=== PATIENT | male | born 1985 | race Two or more races ===

== ENCOUNTER 2021-08-03 15:10 | Inpatient (IN) | payer MEDICAID ==
[~2021-08-03] VITALS: Ht 180.3 cm; Wt 81.6 kg
[2021-08-03] MEDS ORDERED: DIVA-80 PO (18:08)
[2021-08-03] MEDS ORDERED: DOXY-354 PO (18:08)
[2021-08-03] MEDS ORDERED: FOLI0.4T6 PO (18:09)
[2021-08-03] MEDS ORDERED: MELA5TAB40 PO (18:09)
[2021-08-03] MEDS ORDERED: LITH300C3 PO (18:09)
[2021-08-03] MEDS ORDERED: MULT-1203 PO (18:10)
[2021-08-03] MEDS ORDERED: NALT50TA6 PO (18:10)
[2021-08-03] MEDS ORDERED: PANT-31 PO (18:11)
[2021-08-03] MEDS ORDERED: OMEG-135 PO (18:11)
[2021-08-03] MEDS ORDERED: OLAN5TAB94 PO (18:11)
[2021-08-03] MEDS ORDERED: SERT-158 PO (18:11)
[2021-08-03] MEDS ORDERED: THIA100T80 PO (18:12)
[2021-08-03] MEDS ORDERED: ACET-2247 PO (18:12)
[2021-08-03] MEDS ORDERED: BISA-151 PO (18:14)
[2021-08-03] MEDS ORDERED: LOPE2 PO (18:15)
[2021-08-03] MEDS ORDERED: GUAIF10 PO (18:15)
[2021-08-03] MEDS ORDERED: LORA-1001 PO (18:16)
[2021-08-03] MEDS ORDERED: MAAL30 PO (18:18)
[2021-08-03] MEDS ORDERED: MOM30 PO (18:18)
[2021-08-03] MEDS ORDERED: HALOPERIDOL 5 MG TABLET PO PRN (21:30)
[2021-08-03] MEDS ORDERED: LORazepam 2 MG TABLET PO PRN (21:30)
[2021-08-03] MEDS ORDERED: ZOLPIDEM TARTRATE 10 MG TABLET PO PRN (21:30)
[2021-08-03 22:20] VITALS: BP 126/76
[2021-08-03] MEDS ORDERED: INFLUENZA VIRUS VACCINE QVS 2021-22 (6MO+)/PF 60 MCG/0.5 ML SYRINGE IM. ONE (23:15)
[2021-08-04 07:34] LABS: BASOPHILS % (AUTO) 0.5 % (0.0-2.0); EOSINOPHILS % (AUTO) 4.1 % (1.0-6.0); HEMATOCRIT 35.5 % (41-53); HEMOGLOBIN 11.9 g/dL (13.5-17.5); LYMPHOCYTES # (AUTO) 1.6 K/uL (1.0-4.8); LYMPHOCYTES % (AUTO) 15.1 % (22.0-44.0); MEAN CORPUSCULAR HEMOGLOBIN 30.3 pg (26.0-34.0); MEAN CORPUSCULAR HGB CONC 33.4 G/dL (31.0-37.0); MEAN CORPUSCULAR VOLUME 91 fL (80-100); MONOCYTES # (AUTO) 0.9 K/uL (0.1-1.0); MONOCYTES % (AUTO) 8.7 % (2.0-9.0); NEUTROPHILS # (AUTO) 7.4 K/uL (1.8-7.7); NEUTROPHILS % (AUTO) 71.6 % (40.0-70.0); PLATELET COUNT (AUTO) 494 K/uL (150-450); RED BLOOD CELL COUNT(AUTO) 3.91 MIL/uL (4.50-5.90); RED CELL DISTRIBUTION WIDTH 13.9 % (11.5-14.5)
[2021-08-04 07:43] LABS: LITHIUM 0.71 mmol/L (0.60-1.20)
[2021-08-04 07:57] LABS: ALANINE AMINOTRANSFERASE 16 U/L (12-78); ALBUMIN 3.1 g/dL (3.4-5.0); ALKALINE PHOSPHATASE 45 U/L (46-116); ANION GAP 3 mmol/L (8-16); ASPARTATE AMINOTRANSFERASE 10 U/L (15-37); BILIRUBIN,TOTAL 0.4 mg/dL (0.1-1.0); CALCIUM, TOTAL 9.8 mg/dL (8.8-10.5); CARBON DIOXIDE 34 mmol/L (22-29); CHLORIDE 104 mmol/L (98-107); CHOL/HDL RATIO 2.8 (4.2-7.3); CHOLESTEROL 96 mg/dL (131-200); CREATININE 1.27 mg/dL (0.60-1.30); GLOMERULAR FILTR. RATE CALC > 60 mL/min (>60); GLUCOSE,RANDOM 87 mg/dL (70-110); HDL CHOLESTEROL 34 mg/dL (40-60); LDL CHOL (CALC.) 54 mg/dL (0-130); POTASSIUM 3.6 mmol/L (3.5-5.1); SODIUM SERUM 141 mmol/L (136-145); THYROID STIMULATING HORMONE 1.83 uIU/mL (0.36-3.74); TOTAL PROTEIN, SERUM 7.3 g/dL (6.4-8.2); TRIGLYCERIDES 42 mg/dL (15-150); UREA NITROGEN, BLOOD 19 mg/dL (7-18); VALPROIC ACID 50 mcg/mL (50-100)
[2021-08-04 16:51] VITALS: BP 117/76
[2021-08-04] MEDS: LITHIUM CARBONATE 300 MG CAPSULE PO SCH (17:22)
[2021-08-04] MEDS: OLANZapine 5 MG RAPDIS TABLET PO SCH (20:13)
[2021-08-04] MEDS: MELATONIN 5 MG TABLET PO SCH (20:13)
[2021-08-05] MEDS: LITHIUM CARBONATE 300 MG CAPSULE PO SCH ×3 (06:32→16:41)
[2021-08-05] MEDS: NALTREXONE HCL 50 MG TABLET PO SCH (09:17)
[2021-08-05] MEDS: SERTRALINE HCL 50 MG TABLET PO SCH (09:17)
[2021-08-05] MEDS: DIVALPROEX SODIUM 500 MG ER TABLET PO SCH ×3 (09:17→16:41)
[2021-08-05 10:01] VITALS: BP 116/72
[2021-08-05 17:32] VITALS: BP 110/70
[2021-08-05] MEDS: MELATONIN 5 MG TABLET PO SCH (20:18)
[2021-08-05] MEDS: OLANZapine 5 MG RAPDIS TABLET PO SCH (20:18)
[2021-08-06] MEDS: LITHIUM CARBONATE 300 MG CAPSULE PO SCH ×3 (06:46→16:35)
[2021-08-06 08:00] VITALS: BP 114/67
[2021-08-06] MEDS: NALTREXONE HCL 50 MG TABLET PO SCH (08:51)
[2021-08-06] MEDS: DIVALPROEX SODIUM 500 MG ER TABLET PO SCH ×3 (08:51→16:35)
[2021-08-06] MEDS: SERTRALINE HCL 50 MG TABLET PO SCH (08:51)
[2021-08-06 16:33] VITALS: BP 102/69
[2021-08-06] MEDS: OLANZapine 5 MG RAPDIS TABLET PO SCH (20:25)
[2021-08-06] MEDS: MELATONIN 5 MG TABLET PO SCH (20:25)
[2021-08-07] MEDS: LITHIUM CARBONATE 300 MG CAPSULE PO SCH ×3 (06:46→16:19)
[2021-08-07 08:57] VITALS: BP 132/81
[2021-08-07] MEDS: NALTREXONE HCL 50 MG TABLET PO SCH (09:09)
[2021-08-07] MEDS: DIVALPROEX SODIUM 500 MG ER TABLET PO SCH ×3 (09:09→16:19)
[2021-08-07] MEDS: SERTRALINE HCL 50 MG TABLET PO SCH (09:09)
[2021-08-07 16:18] VITALS: BP 118/82
[2021-08-07] MEDS: MELATONIN 5 MG TABLET PO SCH (20:27)
[2021-08-07] MEDS: OLANZapine 5 MG RAPDIS TABLET PO SCH (20:27)
[2021-08-08] MEDS: LITHIUM CARBONATE 300 MG CAPSULE PO SCH ×3 (06:33→16:06)
[2021-08-08] MEDS: NALTREXONE HCL 50 MG TABLET PO SCH (08:53)
[2021-08-08] MEDS: DIVALPROEX SODIUM 500 MG ER TABLET PO SCH ×3 (08:53→16:06)
[2021-08-08] MEDS: MULTIVITAMINS WITH MINERALS, THERAPEUTIC TABLET PO SCH (08:53)
[2021-08-08] MEDS: SERTRALINE HCL 50 MG TABLET PO SCH (08:53)
[2021-08-08 09:49] VITALS: BP 116/69
[2021-08-08 16:00] VITALS: BP 106/75
[2021-08-08] MEDS: MELATONIN 5 MG TABLET PO SCH (20:18)
[2021-08-08] MEDS: OLANZapine 5 MG RAPDIS TABLET PO SCH (20:18)
[2021-08-09] MEDS: LITHIUM CARBONATE 300 MG CAPSULE PO SCH ×3 (06:49→16:28)
[2021-08-09] MEDS: DIVALPROEX SODIUM 500 MG ER TABLET PO SCH ×3 (08:57→16:28)
[2021-08-09] MEDS: SERTRALINE HCL 50 MG TABLET PO SCH (08:58)
[2021-08-09] MEDS: OMEGA-3/DHA/EPA/FISH OIL 1,000 MG CAPSULE PO SCH (08:58)
[2021-08-09] MEDS: NALTREXONE HCL 50 MG TABLET PO SCH (08:58)
[2021-08-09] MEDS: MULTIVITAMINS WITH MINERALS, THERAPEUTIC TABLET PO SCH (08:58)
[2021-08-09 10:02] VITALS: BP 125/69
[2021-08-09 16:24] VITALS: BP 124/82
[2021-08-09] MEDS: MELATONIN 5 MG TABLET PO SCH (20:12)
[2021-08-09] MEDS: OLANZapine 10 MG RAPDIS TABLET PO SCH (20:12)
[2021-08-10] MEDS: LITHIUM CARBONATE 300 MG CAPSULE PO SCH ×3 (06:57→18:42)
[2021-08-10 08:00] VITALS: BP 118/72
[2021-08-10] MEDS: MULTIVITAMINS WITH MINERALS, THERAPEUTIC TABLET PO SCH (08:21)
[2021-08-10] MEDS: OMEGA-3/DHA/EPA/FISH OIL 1,000 MG CAPSULE PO SCH (08:22)
[2021-08-10] MEDS: NALTREXONE HCL 50 MG TABLET PO SCH (08:22)
[2021-08-10] MEDS: DIVALPROEX SODIUM 500 MG ER TABLET PO SCH ×3 (08:22→16:33)
[2021-08-10] MEDS: SERTRALINE HCL 50 MG TABLET PO SCH (08:22)
[2021-08-10 14:48] LABS: COVID AG,FIA SOURCE NASOPHARYNGEAL
[2021-08-10 16:18] VITALS: BP 123/77
[2021-08-10] MEDS: MELATONIN 5 MG TABLET PO SCH (21:05)
[2021-08-10] MEDS: OLANZapine 10 MG RAPDIS TABLET PO SCH (21:06)
[2021-08-11] MEDS: LITHIUM CARBONATE 300 MG CAPSULE PO SCH ×3 (06:34→17:54)
[2021-08-11] MEDS: NALTREXONE HCL 50 MG TABLET PO SCH (08:25)
[2021-08-11] MEDS: SERTRALINE HCL 50 MG TABLET PO SCH (08:25)
[2021-08-11] MEDS: DIVALPROEX SODIUM 500 MG ER TABLET PO SCH ×3 (08:25→16:39)
[2021-08-11] MEDS: MULTIVITAMINS WITH MINERALS, THERAPEUTIC TABLET PO SCH (08:25)
[2021-08-11] MEDS: OMEGA-3/DHA/EPA/FISH OIL 1,000 MG CAPSULE PO SCH (08:25)
[2021-08-11 10:28] VITALS: BP_SYST 113; BP_SYST 126; BP_DIAS 74; BP_DIAS 76
[2021-08-11 16:21] VITALS: BP 124/75
[2021-08-11] MEDS: OLANZapine 10 MG RAPDIS TABLET PO SCH (20:46)
[2021-08-11] MEDS: MELATONIN 5 MG TABLET PO SCH (20:46)
[2021-08-12] MEDS: LITHIUM CARBONATE 300 MG CAPSULE PO SCH ×3 (06:51→16:49)
[2021-08-12] MEDS: NALTREXONE HCL 50 MG TABLET PO SCH (09:05)
[2021-08-12] MEDS: DIVALPROEX SODIUM 500 MG ER TABLET PO SCH ×3 (09:05→16:49)
[2021-08-12] MEDS: MULTIVITAMINS WITH MINERALS, THERAPEUTIC TABLET PO SCH (09:05)
[2021-08-12] MEDS: OMEGA-3/DHA/EPA/FISH OIL 1,000 MG CAPSULE PO SCH (09:05)
[2021-08-12] MEDS: SERTRALINE HCL 50 MG TABLET PO SCH (09:05)
[2021-08-12 16:22] VITALS: BP 12/82
[2021-08-12] MEDS: OLANZapine 10 MG RAPDIS TABLET PO SCH (20:11)
[2021-08-12] MEDS: MELATONIN 5 MG TABLET PO SCH (20:11)
[2021-08-13 08:22] VITALS: BP 114/72
[2021-08-13] MEDS: OMEGA-3/DHA/EPA/FISH OIL 1,000 MG CAPSULE PO SCH (08:56)
[2021-08-13] MEDS: LITHIUM CARBONATE 300 MG CAPSULE PO SCH ×3 (08:56→16:18)
[2021-08-13] MEDS: MULTIVITAMINS WITH MINERALS, THERAPEUTIC TABLET PO SCH (08:56)
[2021-08-13] MEDS: SERTRALINE HCL 50 MG TABLET PO SCH (08:56)
[2021-08-13] MEDS: NALTREXONE HCL 50 MG TABLET PO SCH (08:56)
[2021-08-13] MEDS: DIVALPROEX SODIUM 500 MG ER TABLET PO SCH ×3 (08:56→16:18)
[2021-08-13 16:22] VITALS: BP 120/79
[2021-08-13] MEDS: MELATONIN 5 MG TABLET PO SCH (20:09)
[2021-08-13] MEDS: OLANZapine 10 MG RAPDIS TABLET PO SCH (20:09)
[2021-08-14] MEDS: LITHIUM CARBONATE 300 MG CAPSULE PO SCH ×3 (08:34→16:28)
[2021-08-14] MEDS: DIVALPROEX SODIUM 500 MG ER TABLET PO SCH ×3 (08:34→16:28)
[2021-08-14] MEDS: MULTIVITAMINS WITH MINERALS, THERAPEUTIC TABLET PO SCH (08:34)
[2021-08-14] MEDS: NALTREXONE HCL 50 MG TABLET PO SCH (08:34)
[2021-08-14] MEDS: OMEGA-3/DHA/EPA/FISH OIL 1,000 MG CAPSULE PO SCH (08:34)
[2021-08-14] MEDS: SERTRALINE HCL 50 MG TABLET PO SCH (08:34)
[2021-08-14 09:12] VITALS: BP 117/72
[2021-08-14 16:12] VITALS: BP 110/75
[2021-08-14] MEDS: MELATONIN 5 MG TABLET PO SCH (20:26)
[2021-08-14] MEDS: OLANZapine 10 MG RAPDIS TABLET PO SCH (20:27)
[2021-08-15] MEDS: LITHIUM CARBONATE 300 MG CAPSULE PO SCH ×3 (06:31→16:51)
[2021-08-15] MEDS: NALTREXONE HCL 50 MG TABLET PO SCH (08:31)
[2021-08-15] MEDS: DIVALPROEX SODIUM 500 MG ER TABLET PO SCH ×3 (08:31→16:51)
[2021-08-15] MEDS: SERTRALINE HCL 50 MG TABLET PO SCH (08:31)
[2021-08-15] MEDS: OMEGA-3/DHA/EPA/FISH OIL 1,000 MG CAPSULE PO SCH (08:31)
[2021-08-15] MEDS: MULTIVITAMINS WITH MINERALS, THERAPEUTIC TABLET PO SCH (08:31)
[2021-08-15 08:59] VITALS: BP 110/66
[2021-08-15 16:08] VITALS: BP 114/65
[2021-08-15] MEDS: MELATONIN 5 MG TABLET PO SCH (20:44)
[2021-08-15] MEDS: OLANZapine 10 MG RAPDIS TABLET PO SCH (20:44)
[2021-08-16] MEDS: LITHIUM CARBONATE 300 MG CAPSULE PO SCH ×3 (06:30→16:46)
[2021-08-16] MEDS: OMEGA-3/DHA/EPA/FISH OIL 1,000 MG CAPSULE PO SCH (09:28)
[2021-08-16] MEDS: NALTREXONE HCL 50 MG TABLET PO SCH (09:28)
[2021-08-16] MEDS: DIVALPROEX SODIUM 500 MG ER TABLET PO SCH ×3 (09:28→16:46)
[2021-08-16] MEDS: SERTRALINE HCL 50 MG TABLET PO SCH (09:28)
[2021-08-16] MEDS: MULTIVITAMINS WITH MINERALS, THERAPEUTIC TABLET PO SCH (09:28)
[2021-08-16 09:57] VITALS: BP 148/86
[2021-08-16 16:21] VITALS: BP 125/85
[2021-08-16] MEDS: MELATONIN 5 MG TABLET PO SCH (20:08)
[2021-08-16] MEDS: OLANZapine 10 MG RAPDIS TABLET PO SCH (20:09)
[2021-08-17 05:04] VITALS: BP 105/69
[2021-08-17] MEDS: LITHIUM CARBONATE 300 MG CAPSULE PO SCH ×3 (06:48→16:14)
[2021-08-17 08:10] VITALS: BP 136/79
[2021-08-17] MEDS: MULTIVITAMINS WITH MINERALS, THERAPEUTIC TABLET PO SCH (08:30)
[2021-08-17] MEDS: OMEGA-3/DHA/EPA/FISH OIL 1,000 MG CAPSULE PO SCH (08:30)
[2021-08-17] MEDS: DIVALPROEX SODIUM 500 MG ER TABLET PO SCH ×3 (08:30→16:14)
[2021-08-17] MEDS: SERTRALINE HCL 50 MG TABLET PO SCH (08:30)
[2021-08-17] MEDS: NALTREXONE HCL 50 MG TABLET PO SCH (08:30)
[2021-08-17 16:25] VITALS: BP 107/69
[2021-08-17] MEDS: MELATONIN 5 MG TABLET PO SCH (20:30)
[2021-08-17] MEDS: OLANZapine 10 MG RAPDIS TABLET PO SCH (20:30)
[2021-08-18] MEDS: LITHIUM CARBONATE 300 MG CAPSULE PO SCH ×3 (06:33→16:18)
[2021-08-18 08:00] VITALS: BP 122/69
[2021-08-18] MEDS: MULTIVITAMINS WITH MINERALS, THERAPEUTIC TABLET PO SCH (09:08)
[2021-08-18] MEDS: DIVALPROEX SODIUM 500 MG ER TABLET PO SCH ×3 (09:08→16:18)
[2021-08-18] MEDS: OMEGA-3/DHA/EPA/FISH OIL 1,000 MG CAPSULE PO SCH (09:08)
[2021-08-18] MEDS: SERTRALINE HCL 50 MG TABLET PO SCH (09:08)
[2021-08-18] MEDS: NALTREXONE HCL 50 MG TABLET PO SCH (09:08)
[2021-08-18 16:00] VITALS: BP 136/84
[2021-08-18] MEDS: OLANZapine 10 MG RAPDIS TABLET PO SCH (20:12)
[2021-08-18] MEDS: MELATONIN 5 MG TABLET PO SCH (20:12)
[2021-08-19] MEDS: LITHIUM CARBONATE 300 MG CAPSULE PO SCH ×3 (06:37→16:48)
[2021-08-19 08:52] VITALS: BP 104/64
[2021-08-19] MEDS: DIVALPROEX SODIUM 500 MG ER TABLET PO SCH ×3 (10:36→16:48)
[2021-08-19] MEDS: SERTRALINE HCL 50 MG TABLET PO SCH (10:36)
[2021-08-19] MEDS: MULTIVITAMINS WITH MINERALS, THERAPEUTIC TABLET PO SCH (10:36)
[2021-08-19] MEDS: OMEGA-3/DHA/EPA/FISH OIL 1,000 MG CAPSULE PO SCH (10:36)
[2021-08-19] MEDS: NALTREXONE HCL 50 MG TABLET PO SCH (10:36)
[2021-08-19 16:26] VITALS: BP 116/67
[2021-08-19] MEDS: MELATONIN 5 MG TABLET PO SCH (20:30)
[2021-08-19] MEDS: OLANZapine 10 MG RAPDIS TABLET PO SCH (20:31)
[2021-08-20] MEDS: LITHIUM CARBONATE 300 MG CAPSULE PO SCH ×3 (06:59→16:29)
[2021-08-20] MEDS: OMEGA-3/DHA/EPA/FISH OIL 1,000 MG CAPSULE PO SCH (08:26)
[2021-08-20] MEDS: SERTRALINE HCL 50 MG TABLET PO SCH (08:26)
[2021-08-20] MEDS: NALTREXONE HCL 50 MG TABLET PO SCH (08:26)
[2021-08-20] MEDS: MULTIVITAMINS WITH MINERALS, THERAPEUTIC TABLET PO SCH (08:26)
[2021-08-20] MEDS: DIVALPROEX SODIUM 500 MG ER TABLET PO SCH ×3 (08:26→16:29)
[2021-08-20 09:00] VITALS: BP 155/77
[2021-08-20 10:19] LABS: COVID AG,FIA SOURCE NASAL SWAB
[2021-08-20 16:20] VITALS: BP 144/81
[2021-08-20] MEDS: CLOBETASOL 0.05% 15 GM CREAM TP SCH (16:29)
[2021-08-20] MEDS: MELATONIN 5 MG TABLET PO SCH (20:27)
[2021-08-20] MEDS: OLANZapine 10 MG RAPDIS TABLET PO SCH (20:27)
[2021-08-21] MEDS: LITHIUM CARBONATE 300 MG CAPSULE PO SCH ×3 (06:49→16:06)
[2021-08-21] MEDS: OMEGA-3/DHA/EPA/FISH OIL 1,000 MG CAPSULE PO SCH (08:27)
[2021-08-21] MEDS: DIVALPROEX SODIUM 500 MG ER TABLET PO SCH ×3 (08:27→16:06)
[2021-08-21] MEDS: MULTIVITAMINS WITH MINERALS, THERAPEUTIC TABLET PO SCH (08:27)
[2021-08-21] MEDS: SERTRALINE HCL 50 MG TABLET PO SCH (08:27)
[2021-08-21] MEDS: NALTREXONE HCL 50 MG TABLET PO SCH (08:27)
[2021-08-21] MEDS: CLOBETASOL 0.05% 15 GM CREAM TP SCH ×2 (08:27→16:06)
[2021-08-21 09:27] VITALS: BP 100/54
[2021-08-21 16:28] VITALS: BP 118/77
[2021-08-21] MEDS: OLANZapine 10 MG RAPDIS TABLET PO SCH (20:09)
[2021-08-21] MEDS: MELATONIN 5 MG TABLET PO SCH (20:09)
[2021-08-22] MEDS: LITHIUM CARBONATE 300 MG CAPSULE PO SCH ×3 (06:38→16:58)
[2021-08-22 08:06] VITALS: BP 114/70
[2021-08-22] MEDS: OMEGA-3/DHA/EPA/FISH OIL 1,000 MG CAPSULE PO SCH (08:38)
[2021-08-22] MEDS: DIVALPROEX SODIUM 500 MG ER TABLET PO SCH ×3 (08:38→16:58)
[2021-08-22] MEDS: MULTIVITAMINS WITH MINERALS, THERAPEUTIC TABLET PO SCH (08:39)
[2021-08-22] MEDS: CLOBETASOL 0.05% 15 GM CREAM TP SCH ×2 (08:39→17:00)
[2021-08-22] MEDS: NALTREXONE HCL 50 MG TABLET PO SCH (08:39)
[2021-08-22] MEDS: SERTRALINE HCL 50 MG TABLET PO SCH (08:39)
[2021-08-22 16:24] VITALS: BP 147/87
[2021-08-22] MEDS: MELATONIN 5 MG TABLET PO SCH (20:16)
[2021-08-22] MEDS: OLANZapine 10 MG RAPDIS TABLET PO SCH (20:17)
[2021-08-23 03:21] VITALS: BP 122/76
[2021-08-23] MEDS: LITHIUM CARBONATE 300 MG CAPSULE PO SCH ×3 (06:30→16:05)
[2021-08-23] MEDS: NALTREXONE HCL 50 MG TABLET PO SCH (08:34)
[2021-08-23] MEDS: OMEGA-3/DHA/EPA/FISH OIL 1,000 MG CAPSULE PO SCH (08:34)
[2021-08-23] MEDS: DIVALPROEX SODIUM 500 MG ER TABLET PO SCH ×3 (08:34→16:05)
[2021-08-23] MEDS: CLOBETASOL 0.05% 15 GM CREAM TP SCH ×2 (08:35→16:05)
[2021-08-23] MEDS: MULTIVITAMINS WITH MINERALS, THERAPEUTIC TABLET PO SCH (08:35)
[2021-08-23] MEDS: SERTRALINE HCL 50 MG TABLET PO SCH (08:35)
[2021-08-23 09:12] VITALS: BP 146/87
[2021-08-23 16:00] VITALS: BP 122/83
[2021-08-23] MEDS: MELATONIN 5 MG TABLET PO SCH (20:02)
[2021-08-23] MEDS: OLANZapine 10 MG RAPDIS TABLET PO SCH (20:02)
[2021-08-24] MEDS: LITHIUM CARBONATE 300 MG CAPSULE PO SCH ×3 (06:40→16:07)
[2021-08-24] MEDS: CLOBETASOL 0.05% 15 GM CREAM TP SCH ×2 (09:00→16:08)
[2021-08-24] MEDS: MULTIVITAMINS WITH MINERALS, THERAPEUTIC TABLET PO SCH (09:31)
[2021-08-24] MEDS: DIVALPROEX SODIUM 500 MG ER TABLET PO SCH ×3 (09:31→16:07)
[2021-08-24] MEDS: NALTREXONE HCL 50 MG TABLET PO SCH (09:31)
[2021-08-24] MEDS: SERTRALINE HCL 50 MG TABLET PO SCH (09:31)
[2021-08-24] MEDS: OMEGA-3/DHA/EPA/FISH OIL 1,000 MG CAPSULE PO SCH (09:31)
[2021-08-24 16:00] VITALS: BP 135/78
[2021-08-24] MEDS: OLANZapine 10 MG RAPDIS TABLET PO SCH (20:03)
[2021-08-24] MEDS: MELATONIN 5 MG TABLET PO SCH (20:03)
[2021-08-25] MEDS: LITHIUM CARBONATE 300 MG CAPSULE PO SCH ×3 (06:34→16:46)
[2021-08-25 08:27] VITALS: BP 113/62
[2021-08-25] MEDS: NALTREXONE HCL 50 MG TABLET PO SCH (08:42)
[2021-08-25] MEDS: DIVALPROEX SODIUM 500 MG ER TABLET PO SCH ×3 (08:42→16:46)
[2021-08-25] MEDS: MULTIVITAMINS WITH MINERALS, THERAPEUTIC TABLET PO SCH (08:42)
[2021-08-25] MEDS: OMEGA-3/DHA/EPA/FISH OIL 1,000 MG CAPSULE PO SCH (08:42)
[2021-08-25] MEDS: ESCITALOPRAM OXALATE 10 MG TABLET PO SCH ×2 (08:44→16:46)
[2021-08-25] MEDS: CLOBETASOL 0.05% 15 GM CREAM TP SCH ×2 (08:44→16:47)
[2021-08-25] MEDS ORDERED: ESCITALOPRAM OXALATE 10 MG TABLET PO SCH (09:00)
[2021-08-25 16:14] VITALS: BP 127/83
[2021-08-25] MEDS: MELATONIN 5 MG TABLET PO SCH (20:28)
[2021-08-25] MEDS: OLANZapine 10 MG RAPDIS TABLET PO SCH (20:29)
[2021-08-26] MEDS: LITHIUM CARBONATE 300 MG CAPSULE PO SCH ×3 (06:57→16:53)
[2021-08-26] MEDS: MULTIVITAMINS WITH MINERALS, THERAPEUTIC TABLET PO SCH (08:21)
[2021-08-26] MEDS: DIVALPROEX SODIUM 500 MG ER TABLET PO SCH ×3 (08:21→16:53)
[2021-08-26] MEDS: OMEGA-3/DHA/EPA/FISH OIL 1,000 MG CAPSULE PO SCH (08:22)
[2021-08-26] MEDS: NALTREXONE HCL 50 MG TABLET PO SCH (08:22)
[2021-08-26] MEDS: ESCITALOPRAM OXALATE 10 MG TABLET PO SCH ×2 (08:22→16:53)
[2021-08-26] MEDS: CLOBETASOL 0.05% 15 GM CREAM TP SCH ×2 (08:22→16:53)
[2021-08-26 08:51] VITALS: BP 113/69
[2021-08-26 16:00] VITALS: BP 112/71
[2021-08-26] MEDS: OLANZapine 10 MG RAPDIS TABLET PO SCH (20:57)
[2021-08-26] MEDS: MELATONIN 5 MG TABLET PO SCH (20:57)
[2021-08-27] MEDS: LITHIUM CARBONATE 300 MG CAPSULE PO SCH ×3 (06:59→16:31)
[2021-08-27] MEDS: NALTREXONE HCL 50 MG TABLET PO SCH (08:57)
[2021-08-27] MEDS: OMEGA-3/DHA/EPA/FISH OIL 1,000 MG CAPSULE PO SCH (08:57)
[2021-08-27] MEDS: MULTIVITAMINS WITH MINERALS, THERAPEUTIC TABLET PO SCH (08:57)
[2021-08-27] MEDS: DIVALPROEX SODIUM 500 MG ER TABLET PO SCH ×3 (08:57→16:31)
[2021-08-27] MEDS: ESCITALOPRAM OXALATE 10 MG TABLET PO SCH ×2 (08:58→16:32)
[2021-08-27] MEDS: CLOBETASOL 0.05% 15 GM CREAM TP SCH ×2 (12:44→16:32)
[2021-08-27 14:01] LABS: COVID AG,FIA SOURCE NASAL SWAB
[2021-08-27 16:29] VITALS: BP 104/72
[2021-08-27] MEDS: OLANZapine 10 MG RAPDIS TABLET PO SCH (20:05)
[2021-08-27] MEDS: MELATONIN 5 MG TABLET PO SCH (20:05)
[2021-08-28] MEDS: LITHIUM CARBONATE 300 MG CAPSULE PO SCH ×3 (06:39→16:25)
[2021-08-28 08:45] VITALS: BP 97/66
[2021-08-28] MEDS: DIVALPROEX SODIUM 500 MG ER TABLET PO SCH ×3 (09:32→16:24)
[2021-08-28] MEDS: NALTREXONE HCL 50 MG TABLET PO SCH (09:32)
[2021-08-28] MEDS: MULTIVITAMINS WITH MINERALS, THERAPEUTIC TABLET PO SCH (09:32)
[2021-08-28] MEDS: OMEGA-3/DHA/EPA/FISH OIL 1,000 MG CAPSULE PO SCH (09:32)
[2021-08-28] MEDS: CLOBETASOL 0.05% 15 GM CREAM TP SCH ×2 (09:33→16:25)
[2021-08-28] MEDS: ESCITALOPRAM OXALATE 10 MG TABLET PO SCH ×2 (09:33→16:24)
[2021-08-28 16:00] VITALS: BP 105/67
[2021-08-28 16:41] VITALS: BP 105/67
[2021-08-28] MEDS: MELATONIN 5 MG TABLET PO SCH (20:29)
[2021-08-28] MEDS: OLANZapine 10 MG RAPDIS TABLET PO SCH (20:29)
[2021-08-29] MEDS: LITHIUM CARBONATE 300 MG CAPSULE PO SCH ×3 (06:52→16:04)
[2021-08-29 08:00] VITALS: BP 102/64
[2021-08-29] MEDS: DIVALPROEX SODIUM 500 MG ER TABLET PO SCH ×3 (08:32→16:04)
[2021-08-29] MEDS: NALTREXONE HCL 50 MG TABLET PO SCH (08:32)
[2021-08-29] MEDS: MULTIVITAMINS WITH MINERALS, THERAPEUTIC TABLET PO SCH (08:32)
[2021-08-29] MEDS: OMEGA-3/DHA/EPA/FISH OIL 1,000 MG CAPSULE PO SCH (08:32)
[2021-08-29] MEDS: ESCITALOPRAM OXALATE 10 MG TABLET PO SCH ×2 (08:33→16:04)
[2021-08-29] MEDS: CLOBETASOL 0.05% 15 GM CREAM TP SCH ×2 (08:34→16:05)
[2021-08-29 16:00] VITALS: BP 109/69
[2021-08-29] MEDS: OLANZapine 10 MG RAPDIS TABLET PO SCH (20:13)
[2021-08-29] MEDS: MELATONIN 5 MG TABLET PO SCH (20:14)
[2021-08-30] MEDS: LITHIUM CARBONATE 300 MG CAPSULE PO SCH ×3 (07:03→16:17)
[2021-08-30 07:35] VITALS: BP 117/78
[2021-08-30 08:26] VITALS: BP 117/78
[2021-08-30] MEDS: OMEGA-3/DHA/EPA/FISH OIL 1,000 MG CAPSULE PO SCH (09:03)
[2021-08-30] MEDS: MULTIVITAMINS WITH MINERALS, THERAPEUTIC TABLET PO SCH (09:03)
[2021-08-30] MEDS: DIVALPROEX SODIUM 500 MG ER TABLET PO SCH ×3 (09:03→16:17)
[2021-08-30] MEDS: ESCITALOPRAM OXALATE 10 MG TABLET PO SCH ×2 (09:03→16:17)
[2021-08-30] MEDS: NALTREXONE HCL 50 MG TABLET PO SCH (09:03)
[2021-08-30] MEDS: CLOBETASOL 0.05% 15 GM CREAM TP SCH ×2 (13:52→16:17)
[2021-08-30 16:31] VITALS: BP 101/69
[2021-08-30] MEDS: MELATONIN 5 MG TABLET PO SCH (20:13)
[2021-08-30] MEDS: OLANZapine 10 MG RAPDIS TABLET PO SCH (20:13)
[2021-08-31] MEDS: LITHIUM CARBONATE 300 MG CAPSULE PO SCH ×3 (06:40→17:55)
[2021-08-31] MEDS: DIVALPROEX SODIUM 500 MG ER TABLET PO SCH ×3 (08:24→16:42)
[2021-08-31] MEDS: CLOBETASOL 0.05% 15 GM CREAM TP SCH ×2 (08:24→16:43)
[2021-08-31] MEDS: OMEGA-3/DHA/EPA/FISH OIL 1,000 MG CAPSULE PO SCH (08:24)
[2021-08-31] MEDS: NALTREXONE HCL 50 MG TABLET PO SCH (08:24)
[2021-08-31] MEDS: MULTIVITAMINS WITH MINERALS, THERAPEUTIC TABLET PO SCH (08:25)
[2021-08-31] MEDS: ESCITALOPRAM OXALATE 10 MG TABLET PO SCH ×2 (08:26→16:42)
[2021-08-31 08:57] VITALS: BP 104/69
[2021-08-31 16:11] VITALS: BP 117/67
[2021-08-31 20:03] VITALS: BP 117/67
[2021-08-31] MEDS: MELATONIN 5 MG TABLET PO SCH (20:33)
[2021-08-31] MEDS: OLANZapine 10 MG RAPDIS TABLET PO SCH (20:33)
[2021-09-01 05:59] VITALS: BP 116/65
[2021-09-01] MEDS: LITHIUM CARBONATE 300 MG CAPSULE PO SCH ×3 (06:47→18:31)
[2021-09-01] MEDS: NALTREXONE HCL 50 MG TABLET PO SCH (09:04)
[2021-09-01] MEDS: DIVALPROEX SODIUM 500 MG ER TABLET PO SCH ×3 (09:04→16:17)
[2021-09-01] MEDS: OMEGA-3/DHA/EPA/FISH OIL 1,000 MG CAPSULE PO SCH (09:04)
[2021-09-01] MEDS: ESCITALOPRAM OXALATE 10 MG TABLET PO SCH ×2 (09:04→16:17)
[2021-09-01] MEDS: MULTIVITAMINS WITH MINERALS, THERAPEUTIC TABLET PO SCH (09:05)
[2021-09-01 09:48] VITALS: BP 114/67
[2021-09-01] MEDS: CLOBETASOL 0.05% 15 GM CREAM TP SCH ×2 (13:24→16:18)
[2021-09-01 17:00] VITALS: BP 106/67
[2021-09-01] MEDS: MELATONIN 5 MG TABLET PO SCH (20:25)
[2021-09-01] MEDS: OLANZapine 10 MG RAPDIS TABLET PO SCH (20:26)
[2021-09-02] MEDS: LITHIUM CARBONATE 300 MG CAPSULE PO SCH ×3 (06:37→17:30)
[2021-09-02] MEDS: CLOBETASOL 0.05% 15 GM CREAM TP SCH ×2 (08:35→16:17)
[2021-09-02] MEDS: OMEGA-3/DHA/EPA/FISH OIL 1,000 MG CAPSULE PO SCH (08:35)
[2021-09-02] MEDS: DIVALPROEX SODIUM 500 MG ER TABLET PO SCH ×3 (08:35→16:16)
[2021-09-02] MEDS: ESCITALOPRAM OXALATE 10 MG TABLET PO SCH ×2 (08:36→16:16)
[2021-09-02] MEDS: MULTIVITAMINS WITH MINERALS, THERAPEUTIC TABLET PO SCH (08:36)
[2021-09-02] MEDS: NALTREXONE HCL 50 MG TABLET PO SCH (08:36)
[2021-09-02 09:25] VITALS: BP 115/60
[2021-09-02 16:36] VITALS: BP 114/72
[2021-09-02] MEDS: OLANZapine 10 MG RAPDIS TABLET PO SCH (20:15)
[2021-09-02] MEDS: MELATONIN 5 MG TABLET PO SCH (20:15)
[2021-09-03] MEDS: LITHIUM CARBONATE 300 MG CAPSULE PO SCH ×3 (06:57→16:29)
[2021-09-03] MEDS: ESCITALOPRAM OXALATE 10 MG TABLET PO SCH ×2 (08:59→16:29)
[2021-09-03] MEDS: CLOBETASOL 0.05% 15 GM CREAM TP SCH (08:59)
[2021-09-03] MEDS: MULTIVITAMINS WITH MINERALS, THERAPEUTIC TABLET PO SCH (08:59)
[2021-09-03] MEDS: DIVALPROEX SODIUM 500 MG ER TABLET PO SCH ×3 (09:00→16:29)
[2021-09-03] MEDS: NALTREXONE HCL 50 MG TABLET PO SCH (09:00)
[2021-09-03] MEDS: OMEGA-3/DHA/EPA/FISH OIL 1,000 MG CAPSULE PO SCH (09:00)
[2021-09-03 10:45] VITALS: BP 136/84
[2021-09-03 11:46] LABS: COVID AG,FIA SOURCE NASOPHARYNGEAL
[2021-09-03 16:25] VITALS: BP 122/75
[2021-09-03] MEDS: MELATONIN 5 MG TABLET PO SCH (20:33)
[2021-09-03] MEDS: OLANZapine 10 MG RAPDIS TABLET PO SCH (20:33)
[2021-09-04] MEDS: LITHIUM CARBONATE 300 MG CAPSULE PO SCH ×3 (06:34→16:10)
[2021-09-04] MEDS: MULTIVITAMINS WITH MINERALS, THERAPEUTIC TABLET PO SCH (08:38)
[2021-09-04] MEDS: DIVALPROEX SODIUM 500 MG ER TABLET PO SCH ×3 (08:38→16:10)
[2021-09-04] MEDS: ESCITALOPRAM OXALATE 10 MG TABLET PO SCH ×2 (08:38→16:10)
[2021-09-04] MEDS: NALTREXONE HCL 50 MG TABLET PO SCH (08:38)
[2021-09-04] MEDS: OMEGA-3/DHA/EPA/FISH OIL 1,000 MG CAPSULE PO SCH (08:38)
[2021-09-04 09:00] VITALS: BP 152/83
[2021-09-04 16:26] VITALS: BP 105/57
[2021-09-04] MEDS: MELATONIN 5 MG TABLET PO SCH (20:02)
[2021-09-04] MEDS: OLANZapine 10 MG RAPDIS TABLET PO SCH (20:03)
[2021-09-05] MEDS: LITHIUM CARBONATE 300 MG CAPSULE PO SCH ×3 (06:36→18:46)
[2021-09-05 08:29] VITALS: BP 111/67
[2021-09-05] MEDS: OMEGA-3/DHA/EPA/FISH OIL 1,000 MG CAPSULE PO SCH (08:43)
[2021-09-05] MEDS: MULTIVITAMINS WITH MINERALS, THERAPEUTIC TABLET PO SCH (08:43)
[2021-09-05] MEDS: ESCITALOPRAM OXALATE 10 MG TABLET PO SCH ×2 (08:43→16:05)
[2021-09-05] MEDS: DIVALPROEX SODIUM 500 MG ER TABLET PO SCH ×3 (08:44→16:05)
[2021-09-05] MEDS: NALTREXONE HCL 50 MG TABLET PO SCH (08:44)
[2021-09-05 16:13] VITALS: BP 121/68
[2021-09-05] MEDS: MELATONIN 5 MG TABLET PO SCH (20:31)
[2021-09-05] MEDS: OLANZapine 10 MG RAPDIS TABLET PO SCH (20:31)
[2021-09-06] MEDS: LITHIUM CARBONATE 300 MG CAPSULE PO SCH ×3 (06:45→16:23)
[2021-09-06] MEDS: ESCITALOPRAM OXALATE 10 MG TABLET PO SCH ×2 (08:40→16:23)
[2021-09-06] MEDS: NALTREXONE HCL 50 MG TABLET PO SCH (08:40)
[2021-09-06] MEDS: OMEGA-3/DHA/EPA/FISH OIL 1,000 MG CAPSULE PO SCH (08:40)
[2021-09-06] MEDS: DIVALPROEX SODIUM 500 MG ER TABLET PO SCH ×3 (08:40→16:23)
[2021-09-06] MEDS: MULTIVITAMINS WITH MINERALS, THERAPEUTIC TABLET PO SCH (08:41)
[2021-09-06 09:06] VITALS: BP 143/88
[2021-09-06 16:20] VITALS: BP 118/69
[2021-09-06] MEDS: MELATONIN 5 MG TABLET PO SCH (20:20)
[2021-09-06] MEDS: OLANZapine 10 MG RAPDIS TABLET PO SCH (20:20)
[2021-09-07] MEDS: LITHIUM CARBONATE 300 MG CAPSULE PO SCH ×3 (06:49→16:05)
[2021-09-07] MEDS: MULTIVITAMINS WITH MINERALS, THERAPEUTIC TABLET PO SCH (08:07)
[2021-09-07] MEDS: DIVALPROEX SODIUM 500 MG ER TABLET PO SCH ×3 (08:07→16:05)
[2021-09-07] MEDS: NALTREXONE HCL 50 MG TABLET PO SCH (08:07)
[2021-09-07] MEDS: OMEGA-3/DHA/EPA/FISH OIL 1,000 MG CAPSULE PO SCH (08:07)
[2021-09-07] MEDS: ESCITALOPRAM OXALATE 10 MG TABLET PO SCH ×2 (08:08→16:06)
[2021-09-07 10:05] VITALS: BP 127/82
[2021-09-07 16:46] VITALS: BP 119/78
[2021-09-07] MEDS: MELATONIN 5 MG TABLET PO SCH (20:02)
[2021-09-07] MEDS: OLANZapine 10 MG RAPDIS TABLET PO SCH (20:03)
[2021-09-08] MEDS: LITHIUM CARBONATE 300 MG CAPSULE PO SCH ×3 (06:49→17:49)
[2021-09-08 08:18] VITALS: BP 137/70
[2021-09-08] MEDS: MULTIVITAMINS WITH MINERALS, THERAPEUTIC TABLET PO SCH (08:26)
[2021-09-08] MEDS: NALTREXONE HCL 50 MG TABLET PO SCH (08:27)
[2021-09-08] MEDS: DIVALPROEX SODIUM 500 MG ER TABLET PO SCH ×3 (08:27→17:49)
[2021-09-08] MEDS: ESCITALOPRAM OXALATE 10 MG TABLET PO SCH ×2 (08:27→17:49)
[2021-09-08] MEDS: OMEGA-3/DHA/EPA/FISH OIL 1,000 MG CAPSULE PO SCH (08:27)
[2021-09-08 17:02] VITALS: BP 120/83
[2021-09-08] MEDS: OLANZapine 10 MG RAPDIS TABLET PO SCH (20:46)
[2021-09-08] MEDS: MELATONIN 5 MG TABLET PO SCH (20:46)
[2021-09-09] MEDS: LITHIUM CARBONATE 300 MG CAPSULE PO SCH ×3 (06:47→16:43)
[2021-09-09 08:00] VITALS: BP 109/66
[2021-09-09] MEDS: MULTIVITAMINS WITH MINERALS, THERAPEUTIC TABLET PO SCH (08:40)
[2021-09-09] MEDS: NALTREXONE HCL 50 MG TABLET PO SCH (08:40)
[2021-09-09] MEDS: ESCITALOPRAM OXALATE 10 MG TABLET PO SCH ×2 (08:41→16:43)
[2021-09-09] MEDS: OMEGA-3/DHA/EPA/FISH OIL 1,000 MG CAPSULE PO SCH (08:41)
[2021-09-09] MEDS: DIVALPROEX SODIUM 500 MG ER TABLET PO SCH ×3 (08:41→16:42)
[2021-09-09 18:25] VITALS: BP 101/61
[2021-09-09] MEDS: MELATONIN 5 MG TABLET PO SCH (20:09)
[2021-09-09] MEDS: OLANZapine 10 MG RAPDIS TABLET PO SCH (20:09)
[2021-09-10] MEDS: LITHIUM CARBONATE 300 MG CAPSULE PO SCH ×3 (07:05→16:30)
[2021-09-10 08:00] VITALS: BP 108/64
[2021-09-10] MEDS: OMEGA-3/DHA/EPA/FISH OIL 1,000 MG CAPSULE PO SCH (08:52)
[2021-09-10] MEDS: ESCITALOPRAM OXALATE 10 MG TABLET PO SCH ×2 (08:52→16:30)
[2021-09-10] MEDS: MULTIVITAMINS WITH MINERALS, THERAPEUTIC TABLET PO SCH (08:52)
[2021-09-10] MEDS: NALTREXONE HCL 50 MG TABLET PO SCH (08:52)
[2021-09-10] MEDS: DIVALPROEX SODIUM 500 MG ER TABLET PO SCH ×3 (08:55→16:30)
[2021-09-10 09:59] LABS: COVID AG,FIA SOURCE NASOPHARYNGEAL
[2021-09-10 16:27] VITALS: BP 120/74
[2021-09-10] MEDS: OLANZapine 10 MG RAPDIS TABLET PO SCH (20:54)
[2021-09-10] MEDS: MELATONIN 5 MG TABLET PO SCH (20:54)
[2021-09-11] MEDS: LITHIUM CARBONATE 300 MG CAPSULE PO SCH ×3 (06:49→16:10)
[2021-09-11] MEDS: NALTREXONE HCL 50 MG TABLET PO SCH (07:58)
[2021-09-11] MEDS: MULTIVITAMINS WITH MINERALS, THERAPEUTIC TABLET PO SCH (07:58)
[2021-09-11] MEDS: ESCITALOPRAM OXALATE 10 MG TABLET PO SCH ×2 (07:58→16:10)
[2021-09-11] MEDS: DIVALPROEX SODIUM 500 MG ER TABLET PO SCH ×3 (07:58→16:10)
[2021-09-11] MEDS: OMEGA-3/DHA/EPA/FISH OIL 1,000 MG CAPSULE PO SCH (07:58)
[2021-09-11 08:51] VITALS: BP 111/66
[2021-09-11 16:36] VITALS: BP 118/66
[2021-09-11] MEDS: MELATONIN 5 MG TABLET PO SCH (20:06)
[2021-09-11] MEDS: OLANZapine 10 MG RAPDIS TABLET PO SCH (20:07)
[2021-09-12] MEDS: LITHIUM CARBONATE 300 MG CAPSULE PO SCH ×3 (06:55→16:33)
[2021-09-12] MEDS: DIVALPROEX SODIUM 500 MG ER TABLET PO SCH ×3 (08:19→16:33)
[2021-09-12] MEDS: MULTIVITAMINS WITH MINERALS, THERAPEUTIC TABLET PO SCH (08:19)
[2021-09-12] MEDS: OMEGA-3/DHA/EPA/FISH OIL 1,000 MG CAPSULE PO SCH (08:20)
[2021-09-12] MEDS: NALTREXONE HCL 50 MG TABLET PO SCH (08:20)
[2021-09-12] MEDS: ESCITALOPRAM OXALATE 10 MG TABLET PO SCH ×2 (08:20→16:33)
[2021-09-12 10:04] VITALS: BP 143/89
[2021-09-12 17:14] VITALS: BP 119/70
[2021-09-12] MEDS: OLANZapine 10 MG RAPDIS TABLET PO SCH (21:02)
[2021-09-12] MEDS: MELATONIN 5 MG TABLET PO SCH (21:02)
[2021-09-13] MEDS: LITHIUM CARBONATE 300 MG CAPSULE PO SCH ×3 (06:51→17:31)
[2021-09-13 08:00] VITALS: BP 118/70
[2021-09-13] MEDS: OMEGA-3/DHA/EPA/FISH OIL 1,000 MG CAPSULE PO SCH (08:55)
[2021-09-13] MEDS: MULTIVITAMINS WITH MINERALS, THERAPEUTIC TABLET PO SCH (08:56)
[2021-09-13] MEDS: NALTREXONE HCL 50 MG TABLET PO SCH (08:56)
[2021-09-13] MEDS: DIVALPROEX SODIUM 500 MG ER TABLET PO SCH ×3 (08:56→17:31)
[2021-09-13] MEDS: ESCITALOPRAM OXALATE 10 MG TABLET PO SCH ×2 (08:56→17:31)
[2021-09-13 16:00] VITALS: BP 120/74
[2021-09-13] MEDS: OLANZapine 10 MG RAPDIS TABLET PO SCH (21:23)
[2021-09-13] MEDS: MELATONIN 5 MG TABLET PO SCH (21:23)
[2021-09-14] MEDS: LITHIUM CARBONATE 300 MG CAPSULE PO SCH ×3 (07:00→17:21)
[2021-09-14] MEDS: MULTIVITAMINS WITH MINERALS, THERAPEUTIC TABLET PO SCH (08:30)
[2021-09-14] MEDS: NALTREXONE HCL 50 MG TABLET PO SCH (08:30)
[2021-09-14] MEDS: OMEGA-3/DHA/EPA/FISH OIL 1,000 MG CAPSULE PO SCH (08:30)
[2021-09-14] MEDS: DIVALPROEX SODIUM 500 MG ER TABLET PO SCH ×3 (08:30→16:30)
[2021-09-14] MEDS: ESCITALOPRAM OXALATE 10 MG TABLET PO SCH ×2 (08:31→16:30)
[2021-09-14 09:14] VITALS: BP 117/68
[2021-09-14 16:09] VITALS: BP 132/76
[2021-09-14] MEDS: MELATONIN 5 MG TABLET PO SCH (20:58)
[2021-09-14] MEDS: OLANZapine 10 MG RAPDIS TABLET PO SCH (20:58)
[2021-09-15] MEDS: LITHIUM CARBONATE 300 MG CAPSULE PO SCH ×3 (06:31→16:08)
[2021-09-15 08:12] VITALS: BP 115/72
[2021-09-15] MEDS: NALTREXONE HCL 50 MG TABLET PO SCH (09:30)
[2021-09-15] MEDS: OMEGA-3/DHA/EPA/FISH OIL 1,000 MG CAPSULE PO SCH (09:30)
[2021-09-15] MEDS: DIVALPROEX SODIUM 500 MG ER TABLET PO SCH ×3 (09:30→16:08)
[2021-09-15] MEDS: MULTIVITAMINS WITH MINERALS, THERAPEUTIC TABLET PO SCH (09:30)
[2021-09-15] MEDS: ESCITALOPRAM OXALATE 10 MG TABLET PO SCH ×2 (09:30→16:08)
[2021-09-15 16:20] VITALS: BP 139/76
[2021-09-15] MEDS: MELATONIN 5 MG TABLET PO SCH (20:26)
[2021-09-15] MEDS: OLANZapine 10 MG RAPDIS TABLET PO SCH (20:26)
[2021-09-16] MEDS: LITHIUM CARBONATE 300 MG CAPSULE PO SCH ×3 (06:34→16:58)
[2021-09-16 08:13] VITALS: BP 112/72
[2021-09-16 08:51] VITALS: BP 112/72
[2021-09-16] MEDS: OMEGA-3/DHA/EPA/FISH OIL 1,000 MG CAPSULE PO SCH (09:12)
[2021-09-16] MEDS: ESCITALOPRAM OXALATE 10 MG TABLET PO SCH ×2 (09:13→16:21)
[2021-09-16] MEDS: NALTREXONE HCL 50 MG TABLET PO SCH (09:13)
[2021-09-16] MEDS: DIVALPROEX SODIUM 500 MG ER TABLET PO SCH ×3 (09:13→16:20)
[2021-09-16] MEDS: MULTIVITAMINS WITH MINERALS, THERAPEUTIC TABLET PO SCH (09:14)
[2021-09-16 16:21] VITALS: BP 116/74
[2021-09-16] MEDS: OLANZapine 10 MG RAPDIS TABLET PO SCH (20:17)
[2021-09-16] MEDS: MELATONIN 5 MG TABLET PO SCH (20:18)
[2021-09-17 05:15] VITALS: BP 114/63
[2021-09-17] MEDS: LITHIUM CARBONATE 300 MG CAPSULE PO SCH ×3 (06:46→16:20)
[2021-09-17 08:00] VITALS: BP 120/66
[2021-09-17] MEDS: MULTIVITAMINS WITH MINERALS, THERAPEUTIC TABLET PO SCH (08:21)
[2021-09-17] MEDS: OMEGA-3/DHA/EPA/FISH OIL 1,000 MG CAPSULE PO SCH (08:21)
[2021-09-17] MEDS: ESCITALOPRAM OXALATE 10 MG TABLET PO SCH ×2 (08:21→16:20)
[2021-09-17] MEDS: DIVALPROEX SODIUM 500 MG ER TABLET PO SCH ×3 (08:21→16:20)
[2021-09-17] MEDS: NALTREXONE HCL 50 MG TABLET PO SCH (08:21)
[2021-09-17 09:16] LABS: COVID AG,FIA SOURCE NASOPHARYNGEAL
[2021-09-17 16:45] VITALS: BP 115/74
[2021-09-17] MEDS: OLANZapine 10 MG RAPDIS TABLET PO SCH (20:08)
[2021-09-17] MEDS: MELATONIN 5 MG TABLET PO SCH (20:08)
[2021-09-18] MEDS: LITHIUM CARBONATE 300 MG CAPSULE PO SCH ×3 (06:31→17:34)
[2021-09-18] MEDS: MULTIVITAMINS WITH MINERALS, THERAPEUTIC TABLET PO SCH (08:41)
[2021-09-18] MEDS: OMEGA-3/DHA/EPA/FISH OIL 1,000 MG CAPSULE PO SCH (08:41)
[2021-09-18] MEDS: ESCITALOPRAM OXALATE 10 MG TABLET PO SCH ×2 (08:41→16:35)
[2021-09-18] MEDS: NALTREXONE HCL 50 MG TABLET PO SCH (08:41)
[2021-09-18] MEDS: DIVALPROEX SODIUM 500 MG ER TABLET PO SCH ×3 (08:42→16:35)
[2021-09-18 08:55] VITALS: BP 130/72
[2021-09-18 16:21] LABS: COVID AG,FIA SOURCE NASAL SWAB
[2021-09-18] MEDS ORDERED: IBUPROFEN 600 MG TABLET PO PRN (17:30)
[2021-09-18 18:01] VITALS: BP 137/77
[2021-09-18] MEDS: MELATONIN 5 MG TABLET PO SCH (20:19)
[2021-09-18] MEDS: OLANZapine 10 MG RAPDIS TABLET PO SCH (20:19)
[2021-09-19] MEDS: LITHIUM CARBONATE 300 MG CAPSULE PO SCH ×3 (06:40→16:49)
[2021-09-19] MEDS: ESCITALOPRAM OXALATE 10 MG TABLET PO SCH ×2 (09:13→16:49)
[2021-09-19] MEDS: MULTIVITAMINS WITH MINERALS, THERAPEUTIC TABLET PO SCH (09:13)
[2021-09-19] MEDS: DIVALPROEX SODIUM 500 MG ER TABLET PO SCH ×3 (09:13→16:49)
[2021-09-19] MEDS: NALTREXONE HCL 50 MG TABLET PO SCH (09:13)
[2021-09-19] MEDS: OMEGA-3/DHA/EPA/FISH OIL 1,000 MG CAPSULE PO SCH (09:14)
[2021-09-19 09:37] VITALS: BP 146/96
[2021-09-19 16:00] VITALS: BP 135/82
[2021-09-19] MEDS: MELATONIN 5 MG TABLET PO SCH (20:25)
[2021-09-19] MEDS: OLANZapine 10 MG RAPDIS TABLET PO SCH (20:25)
[2021-09-20] MEDS: LITHIUM CARBONATE 300 MG CAPSULE PO SCH ×3 (06:43→16:12)
[2021-09-20] MEDS: DIVALPROEX SODIUM 500 MG ER TABLET PO SCH ×3 (08:56→16:11)
[2021-09-20] MEDS: OMEGA-3/DHA/EPA/FISH OIL 1,000 MG CAPSULE PO SCH (08:56)
[2021-09-20] MEDS: ESCITALOPRAM OXALATE 10 MG TABLET PO SCH ×2 (08:56→16:11)
[2021-09-20] MEDS: NALTREXONE HCL 50 MG TABLET PO SCH (08:56)
[2021-09-20] MEDS: MULTIVITAMINS WITH MINERALS, THERAPEUTIC TABLET PO SCH (08:56)
[2021-09-20 10:28] VITALS: BP 113/64
[2021-09-20 16:24] VITALS: BP 120/71
[2021-09-20] MEDS: OLANZapine 10 MG RAPDIS TABLET PO SCH (20:09)
[2021-09-20] MEDS: MELATONIN 5 MG TABLET PO SCH (20:09)
[2021-09-21] MEDS: LITHIUM CARBONATE 300 MG CAPSULE PO SCH ×3 (07:07→17:04)
[2021-09-21] MEDS: DIVALPROEX SODIUM 500 MG ER TABLET PO SCH ×3 (08:23→17:05)
[2021-09-21] MEDS: MULTIVITAMINS WITH MINERALS, THERAPEUTIC TABLET PO SCH (08:23)
[2021-09-21] MEDS: OMEGA-3/DHA/EPA/FISH OIL 1,000 MG CAPSULE PO SCH (08:23)
[2021-09-21] MEDS: NALTREXONE HCL 50 MG TABLET PO SCH (08:23)
[2021-09-21] MEDS: ESCITALOPRAM OXALATE 10 MG TABLET PO SCH ×2 (08:23→17:05)
[2021-09-21 09:47] VITALS: BP 120/73
[2021-09-21] MEDS ORDERED: TUBERCULIN, PURIFIED PROTEIN DERIVATIVE 5 TU/0.1 ML SYRINGE ID ONE (12:45)
[2021-09-21 16:51] VITALS: BP 111/70
[2021-09-21] MEDS: OLANZapine 10 MG RAPDIS TABLET PO SCH (20:43)
[2021-09-21] MEDS: MELATONIN 5 MG TABLET PO SCH (20:43)
[2021-09-22] MEDS: LITHIUM CARBONATE 300 MG CAPSULE PO SCH ×3 (06:33→16:41)
[2021-09-22] MEDS: MULTIVITAMINS WITH MINERALS, THERAPEUTIC TABLET PO SCH (09:22)
[2021-09-22] MEDS: OMEGA-3/DHA/EPA/FISH OIL 1,000 MG CAPSULE PO SCH (09:22)
[2021-09-22] MEDS: NALTREXONE HCL 50 MG TABLET PO SCH (09:22)
[2021-09-22] MEDS: DIVALPROEX SODIUM 500 MG ER TABLET PO SCH ×3 (09:23→16:41)
[2021-09-22] MEDS: ESCITALOPRAM OXALATE 10 MG TABLET PO SCH ×2 (09:23→16:41)
[2021-09-22 10:19] VITALS: BP 119/65
[2021-09-22 16:54] VITALS: BP 121/75
[2021-09-22] MEDS: MELATONIN 5 MG TABLET PO SCH (21:01)
[2021-09-22] MEDS: OLANZapine 10 MG RAPDIS TABLET PO SCH (21:02)
[2021-09-23] MEDS: LITHIUM CARBONATE 300 MG CAPSULE PO SCH ×3 (06:57→16:28)
[2021-09-23 08:00] VITALS: BP 112/74
[2021-09-23] MEDS: MULTIVITAMINS WITH MINERALS, THERAPEUTIC TABLET PO SCH (08:29)
[2021-09-23] MEDS: OMEGA-3/DHA/EPA/FISH OIL 1,000 MG CAPSULE PO SCH (08:30)
[2021-09-23] MEDS: DIVALPROEX SODIUM 500 MG ER TABLET PO SCH ×3 (08:30→16:28)
[2021-09-23] MEDS: ESCITALOPRAM OXALATE 10 MG TABLET PO SCH ×2 (08:30→16:28)
[2021-09-23] MEDS: NALTREXONE HCL 50 MG TABLET PO SCH (08:31)
[2021-09-23 16:34] VITALS: BP 111/69
[2021-09-23] MEDS: MELATONIN 5 MG TABLET PO SCH (20:31)
[2021-09-23] MEDS: OLANZapine 10 MG RAPDIS TABLET PO SCH (20:31)
[2021-09-24] MEDS: LITHIUM CARBONATE 300 MG CAPSULE PO SCH ×3 (06:34→16:17)
[2021-09-24 08:00] VITALS: BP 112/62
[2021-09-24] MEDS: DIVALPROEX SODIUM 500 MG ER TABLET PO SCH ×3 (08:47→16:17)
[2021-09-24] MEDS: NALTREXONE HCL 50 MG TABLET PO SCH (08:47)
[2021-09-24] MEDS: ESCITALOPRAM OXALATE 10 MG TABLET PO SCH ×2 (08:47→16:17)
[2021-09-24] MEDS: OMEGA-3/DHA/EPA/FISH OIL 1,000 MG CAPSULE PO SCH (08:47)
[2021-09-24] MEDS: MULTIVITAMINS WITH MINERALS, THERAPEUTIC TABLET PO SCH (08:47)
[2021-09-24 16:00] VITALS: BP 133/81
[2021-09-24] MEDS: OLANZapine 10 MG RAPDIS TABLET PO SCH (20:16)
[2021-09-24] MEDS: MELATONIN 5 MG TABLET PO SCH (20:17)
[2021-09-25] MEDS: LITHIUM CARBONATE 300 MG CAPSULE PO SCH ×3 (06:34→16:09)
[2021-09-25 08:08] VITALS: BP 118/75
[2021-09-25] MEDS: NALTREXONE HCL 50 MG TABLET PO SCH (08:36)
[2021-09-25] MEDS: ESCITALOPRAM OXALATE 10 MG TABLET PO SCH ×2 (08:36→16:09)
[2021-09-25] MEDS: MULTIVITAMINS WITH MINERALS, THERAPEUTIC TABLET PO SCH (08:36)
[2021-09-25] MEDS: DIVALPROEX SODIUM 500 MG ER TABLET PO SCH ×3 (08:37→16:09)
[2021-09-25] MEDS: OMEGA-3/DHA/EPA/FISH OIL 1,000 MG CAPSULE PO SCH (08:37)
[2021-09-25 12:58] LABS: COVID AG,FIA SOURCE NASOPHARYNGEAL
[2021-09-25 17:05] VITALS: BP 124/79
[2021-09-25] MEDS: MELATONIN 5 MG TABLET PO SCH (20:15)
[2021-09-25] MEDS: OLANZapine 10 MG RAPDIS TABLET PO SCH (20:15)
[2021-09-26] MEDS: LITHIUM CARBONATE 300 MG CAPSULE PO SCH ×3 (06:31→17:05)
[2021-09-26 08:00] VITALS: BP 111/59
[2021-09-26] MEDS: MULTIVITAMINS WITH MINERALS, THERAPEUTIC TABLET PO SCH (09:12)
[2021-09-26] MEDS: DIVALPROEX SODIUM 500 MG ER TABLET PO SCH ×3 (09:12→16:20)
[2021-09-26] MEDS: OMEGA-3/DHA/EPA/FISH OIL 1,000 MG CAPSULE PO SCH (09:12)
[2021-09-26] MEDS: NALTREXONE HCL 50 MG TABLET PO SCH (09:12)
[2021-09-26] MEDS: ESCITALOPRAM OXALATE 10 MG TABLET PO SCH ×2 (09:13→16:21)
[2021-09-26 16:53] VITALS: BP 137/96
[2021-09-26] MEDS: OLANZapine 10 MG RAPDIS TABLET PO SCH (20:17)
[2021-09-26] MEDS: MELATONIN 5 MG TABLET PO SCH (20:17)
[2021-09-27] MEDS: LITHIUM CARBONATE 300 MG CAPSULE PO SCH ×3 (06:32→17:20)
[2021-09-27 08:42] VITALS: BP 122/68
[2021-09-27] MEDS: ESCITALOPRAM OXALATE 10 MG TABLET PO SCH ×2 (09:00→17:20)
[2021-09-27] MEDS: OMEGA-3/DHA/EPA/FISH OIL 1,000 MG CAPSULE PO SCH (09:00)
[2021-09-27] MEDS: NALTREXONE HCL 50 MG TABLET PO SCH (09:01)
[2021-09-27] MEDS: MULTIVITAMINS WITH MINERALS, THERAPEUTIC TABLET PO SCH (09:01)
[2021-09-27] MEDS: DIVALPROEX SODIUM 500 MG ER TABLET PO SCH ×3 (09:01→17:20)
[2021-09-27 16:37] VITALS: BP 124/73
[2021-09-27] MEDS: MELATONIN 5 MG TABLET PO SCH (21:00)
[2021-09-27] MEDS: OLANZapine 10 MG RAPDIS TABLET PO SCH (21:01)
[2021-09-28 05:41] VITALS: BP 124/74
[2021-09-28] MEDS: LITHIUM CARBONATE 300 MG CAPSULE PO SCH ×3 (06:42→17:19)
[2021-09-28] MEDS: MULTIVITAMINS WITH MINERALS, THERAPEUTIC TABLET PO SCH (08:38)
[2021-09-28] MEDS: DIVALPROEX SODIUM 500 MG ER TABLET PO SCH ×3 (08:38→17:18)
[2021-09-28] MEDS: NALTREXONE HCL 50 MG TABLET PO SCH (08:38)
[2021-09-28] MEDS: OMEGA-3/DHA/EPA/FISH OIL 1,000 MG CAPSULE PO SCH (08:38)
[2021-09-28] MEDS: ESCITALOPRAM OXALATE 10 MG TABLET PO SCH ×2 (08:40→17:18)
[2021-09-28 16:00] VITALS: BP 120/72
[2021-09-28 20:25] VITALS: BP 128/76
[2021-09-28 20:52] LABS: COVID AG,FIA SOURCE NASAL SWAB
[2021-09-28] MEDS: OLANZapine 10 MG RAPDIS TABLET PO SCH (21:03)
[2021-09-28] MEDS: MELATONIN 5 MG TABLET PO SCH (21:04)
[2021-09-29 06:40] VITALS: BP 120/80
[2021-09-29] MEDS: LITHIUM CARBONATE 300 MG CAPSULE PO SCH ×3 (07:04→16:34)
[2021-09-29] MEDS: NALTREXONE HCL 50 MG TABLET PO SCH (09:38)
[2021-09-29] MEDS: OMEGA-3/DHA/EPA/FISH OIL 1,000 MG CAPSULE PO SCH (09:38)
[2021-09-29] MEDS: DIVALPROEX SODIUM 500 MG ER TABLET PO SCH ×3 (09:38→16:34)
[2021-09-29] MEDS: MULTIVITAMINS WITH MINERALS, THERAPEUTIC TABLET PO SCH (09:38)
[2021-09-29] MEDS: ESCITALOPRAM OXALATE 10 MG TABLET PO SCH ×2 (09:38→16:34)
[2021-09-29 10:34] VITALS: BP 92/59
[2021-09-29 13:18] VITALS: BP 92/59
[2021-09-29] MEDS: ACETAMINOPHEN 500 MG TABLET PO PRN ×2 (14:06→18:23)
[2021-09-29 14:08] LABS: COVID AG,FIA SOURCE NASOPHARYNGEAL
[2021-09-29 16:54] VITALS: BP 129/61
[2021-09-29 18:23] VITALS: BP 125/60
[2021-09-29] MEDS: MELATONIN 5 MG TABLET PO SCH (20:30)
[2021-09-29] MEDS: OLANZapine 10 MG RAPDIS TABLET PO SCH (20:31)
[2021-09-30] MEDS: LITHIUM CARBONATE 300 MG CAPSULE PO SCH ×3 (06:42→16:07)
[2021-09-30 08:00] VITALS: BP 109/52
[2021-09-30] MEDS: ESCITALOPRAM OXALATE 10 MG TABLET PO SCH ×2 (08:18→16:07)
[2021-09-30] MEDS: MULTIVITAMINS WITH MINERALS, THERAPEUTIC TABLET PO SCH (08:18)
[2021-09-30] MEDS: OMEGA-3/DHA/EPA/FISH OIL 1,000 MG CAPSULE PO SCH (08:18)
[2021-09-30] MEDS: NALTREXONE HCL 50 MG TABLET PO SCH (08:19)
[2021-09-30] MEDS: DIVALPROEX SODIUM 500 MG ER TABLET PO SCH ×3 (08:19→16:07)
[2021-09-30 16:24] VITALS: BP 117/73
[2021-09-30] MEDS: OLANZapine 10 MG RAPDIS TABLET PO SCH (20:01)
[2021-09-30] MEDS: MELATONIN 5 MG TABLET PO SCH (20:01)
[2021-10-01 07:04] LABS: LITHIUM 0.59 mmol/L (0.60-1.20)
[2021-10-01 08:00] VITALS: BP 120/69
[2021-10-01] MEDS: NALTREXONE HCL 50 MG TABLET PO SCH (08:03)
[2021-10-01] MEDS: MULTIVITAMINS WITH MINERALS, THERAPEUTIC TABLET PO SCH (08:03)
[2021-10-01] MEDS: OMEGA-3/DHA/EPA/FISH OIL 1,000 MG CAPSULE PO SCH (08:04)
[2021-10-01] MEDS: ESCITALOPRAM OXALATE 10 MG TABLET PO SCH ×2 (08:04→16:18)
[2021-10-01 16:11] VITALS: BP 104/61
[2021-10-01] MEDS: MELATONIN 5 MG TABLET PO SCH (20:30)
[2021-10-01] MEDS: OLANZapine 10 MG RAPDIS TABLET PO SCH (20:30)
[2021-10-02 08:05] VITALS: BP 113/63
[2021-10-02] MEDS: ESCITALOPRAM OXALATE 10 MG TABLET PO SCH ×2 (08:05→17:10)
[2021-10-02] MEDS: MULTIVITAMINS WITH MINERALS, THERAPEUTIC TABLET PO SCH (08:05)
[2021-10-02] MEDS: OMEGA-3/DHA/EPA/FISH OIL 1,000 MG CAPSULE PO SCH (08:05)
[2021-10-02] MEDS: NALTREXONE HCL 50 MG TABLET PO SCH (08:05)
[2021-10-02 16:55] VITALS: BP 100/59
[2021-10-02] MEDS: MELATONIN 5 MG TABLET PO SCH (20:24)
[2021-10-02] MEDS: OLANZapine 10 MG RAPDIS TABLET PO SCH (20:24)
[2021-10-03 08:55] VITALS: BP 125/79
[2021-10-03] MEDS: MULTIVITAMINS WITH MINERALS, THERAPEUTIC TABLET PO SCH (09:41)
[2021-10-03] MEDS: OMEGA-3/DHA/EPA/FISH OIL 1,000 MG CAPSULE PO SCH (09:41)
[2021-10-03] MEDS: ESCITALOPRAM OXALATE 10 MG TABLET PO SCH ×2 (09:42→16:14)
[2021-10-03] MEDS: NALTREXONE HCL 50 MG TABLET PO SCH (09:42)
[2021-10-03 16:01] LABS: COVID AG,FIA SOURCE NASAL SWAB
[2021-10-03 16:57] VITALS: BP 130/75
[2021-10-03] MEDS: MELATONIN 5 MG TABLET PO SCH (20:17)
[2021-10-03] MEDS: OLANZapine 10 MG RAPDIS TABLET PO SCH (20:17)
[2021-10-04] MEDS: MULTIVITAMINS WITH MINERALS, THERAPEUTIC TABLET PO SCH (08:09)
[2021-10-04] MEDS: OMEGA-3/DHA/EPA/FISH OIL 1,000 MG CAPSULE PO SCH (08:09)
[2021-10-04] MEDS: ESCITALOPRAM OXALATE 10 MG TABLET PO SCH ×2 (08:09→16:49)
[2021-10-04] MEDS: NALTREXONE HCL 50 MG TABLET PO SCH (08:09)
[2021-10-04 17:10] VITALS: BP 124/70
[2021-10-04] MEDS: MELATONIN 5 MG TABLET PO SCH (20:01)
[2021-10-04] MEDS: OLANZapine 10 MG RAPDIS TABLET PO SCH (20:01)
[2021-10-05 08:00] VITALS: BP 115/74
[2021-10-05] MEDS: NALTREXONE HCL 50 MG TABLET PO SCH (08:33)
[2021-10-05] MEDS: ESCITALOPRAM OXALATE 10 MG TABLET PO SCH ×2 (08:34→16:05)
[2021-10-05] MEDS: MULTIVITAMINS WITH MINERALS, THERAPEUTIC TABLET PO SCH (08:34)
[2021-10-05] MEDS: OMEGA-3/DHA/EPA/FISH OIL 1,000 MG CAPSULE PO SCH (08:34)
[2021-10-05 16:00] VITALS: BP 111/73
[2021-10-05 18:07] LABS: COVID AG,FIA SOURCE NASAL SWAB
[2021-10-05] MEDS: MELATONIN 5 MG TABLET PO SCH (19:57)
[2021-10-05] MEDS: OLANZapine 10 MG RAPDIS TABLET PO SCH (19:58)
[2021-10-06 08:00] VITALS: BP 123/70
[2021-10-06] MEDS: ESCITALOPRAM OXALATE 10 MG TABLET PO SCH ×2 (08:19→16:06)
[2021-10-06] MEDS: NALTREXONE HCL 50 MG TABLET PO SCH (08:19)
[2021-10-06] MEDS: MULTIVITAMINS WITH MINERALS, THERAPEUTIC TABLET PO SCH (08:19)
[2021-10-06] MEDS: OMEGA-3/DHA/EPA/FISH OIL 1,000 MG CAPSULE PO SCH (08:19)
[2021-10-06 15:17] LABS: COVID AG,FIA SOURCE NASAL SWAB
[2021-10-06 16:13] VITALS: BP 128/72
[2021-10-06] MEDS: MELATONIN 5 MG TABLET PO SCH (21:14)
[2021-10-06] MEDS: OLANZapine 10 MG RAPDIS TABLET PO SCH (21:14)
[2021-10-07] MEDS: NALTREXONE HCL 50 MG TABLET PO SCH (08:17)
[2021-10-07] MEDS: ESCITALOPRAM OXALATE 10 MG TABLET PO SCH ×2 (08:17→16:02)
[2021-10-07] MEDS: OMEGA-3/DHA/EPA/FISH OIL 1,000 MG CAPSULE PO SCH (08:18)
[2021-10-07] MEDS: MULTIVITAMINS WITH MINERALS, THERAPEUTIC TABLET PO SCH (08:18)
[2021-10-07 08:40] VITALS: BP 124/67
[2021-10-07 16:29] VITALS: BP 126/77
[2021-10-07 17:22] LABS: COVID AG,FIA SOURCE NASAL SWAB
[2021-10-07] MEDS: OLANZapine 10 MG RAPDIS TABLET PO SCH (20:06)
[2021-10-07] MEDS: MELATONIN 5 MG TABLET PO SCH (20:06)
[2021-10-08 08:00] VITALS: BP 122/75
[2021-10-08] MEDS: NALTREXONE HCL 50 MG TABLET PO SCH (10:34)
[2021-10-08] MEDS: MULTIVITAMINS WITH MINERALS, THERAPEUTIC TABLET PO SCH (10:34)
[2021-10-08] MEDS: OMEGA-3/DHA/EPA/FISH OIL 1,000 MG CAPSULE PO SCH (10:34)
[2021-10-08] MEDS: ESCITALOPRAM OXALATE 10 MG TABLET PO SCH ×2 (10:35→16:06)
[2021-10-08 16:53] VITALS: BP 119/74
[2021-10-08] MEDS: MELATONIN 5 MG TABLET PO SCH (20:20)
[2021-10-08] MEDS: OLANZapine 10 MG RAPDIS TABLET PO SCH (20:20)
[2021-10-09 08:00] VITALS: BP 107/65
[2021-10-09] MEDS: NALTREXONE HCL 50 MG TABLET PO SCH (09:15)
[2021-10-09] MEDS: MULTIVITAMINS WITH MINERALS, THERAPEUTIC TABLET PO SCH (09:15)
[2021-10-09] MEDS: OMEGA-3/DHA/EPA/FISH OIL 1,000 MG CAPSULE PO SCH (09:16)
[2021-10-09] MEDS: ESCITALOPRAM OXALATE 10 MG TABLET PO SCH ×2 (09:16→16:24)
[2021-10-09 16:45] VITALS: BP 118/60
[2021-10-09] MEDS: MELATONIN 5 MG TABLET PO SCH (20:26)
[2021-10-09] MEDS: OLANZapine 10 MG RAPDIS TABLET PO SCH (20:27)
[2021-10-10] MEDS: ESCITALOPRAM OXALATE 10 MG TABLET PO SCH ×2 (08:03→16:43)
[2021-10-10] MEDS: OMEGA-3/DHA/EPA/FISH OIL 1,000 MG CAPSULE PO SCH (08:03)
[2021-10-10] MEDS: NALTREXONE HCL 50 MG TABLET PO SCH (08:04)
[2021-10-10] MEDS: MULTIVITAMINS WITH MINERALS, THERAPEUTIC TABLET PO SCH (08:04)
[2021-10-10 08:33] VITALS: BP 132/91
[2021-10-10 12:47] LABS: COVID AG,FIA SOURCE NASAL SWAB
[2021-10-10] MEDS ORDERED: NALT50TA PO (14:29)
[2021-10-10] MEDS ORDERED: MELA5TAB40 PO (14:29)
[2021-10-10] MEDS ORDERED: ESCI10 PO (14:29)
[2021-10-10] MEDS ORDERED: OMEG-135 PO (14:29)
[2021-10-10] MEDS ORDERED: OLAN10TA26 PO (14:29)
[2021-10-10 16:19] VITALS: BP 114/75
[2021-10-10] MEDS: OLANZapine 10 MG RAPDIS TABLET PO SCH (20:27)
[2021-10-10] MEDS: MELATONIN 5 MG TABLET PO SCH (20:27)
[2021-10-11 08:05] VITALS: BP 113/73
[2021-10-11] MEDS: MULTIVITAMINS WITH MINERALS, THERAPEUTIC TABLET PO SCH (11:01)
[2021-10-11] MEDS: NALTREXONE HCL 50 MG TABLET PO SCH (11:01)
[2021-10-11] MEDS: OMEGA-3/DHA/EPA/FISH OIL 1,000 MG CAPSULE PO SCH (11:01)
[2021-10-11] MEDS: ESCITALOPRAM OXALATE 10 MG TABLET PO SCH (11:01)
[2021-10-12] MEDS ORDERED: OLAN10TA26 PO (15:45)
[2021-10-12] MEDS ORDERED: NALT50TA PO (15:45)
[2021-10-12] MEDS ORDERED: DIVA-80 PO (15:45)
[2021-10-12] MEDS ORDERED: ESCI10 PO (15:45)
[2021-10-12] MEDS ORDERED: MELA5TAB40 PO (15:45)
[2021-10-12] MEDS ORDERED: OMEG-135 PO (15:45)
== END 2021-10-11 13:00 | disposition home or self-care (01) | DRG 750 ==
LOC: 3EI 18:55 → 3EC 09-29 15:19
PROVIDERS: ADMIT Psychiatry & Neurology Psychiatry; ATTEND Psychiatry & Neurology Psychiatry
DX: F25.0 Schizoaffective disorder, bipolar type (principal); U07.1 COVID-19; Z91.19 Patient's noncompliance with other medical treatment and regimen; D64.9 Anemia, unspecified; J44.9 Chronic obstructive pulmonary disease, unspecified; Z55.9 Problems related to education and literacy, unspecified; Z59.9 Problem related to housing and economic circumstances, unspecified; Z63.9 Problem related to primary support group, unspecified; Z65.3 Problems related to other legal circumstances; Z79.899 Other long term (current) drug therapy; Z86.16 Personal history of COVID-19; Z91.51 Personal history of suicidal behavior
CPT/HCPCS: 80053; 80061; 80164; 80178; 84436; 84443; 85025; 87081; Q9967

== ENCOUNTER 2022-03-14 11:47 | Emergency (ER) | payer MEDICAID, OTHER ==
[~2022-03-14] VITALS: Ht 180.3 cm; Wt 79.5 kg
[~2022-03-14 11:47] MED LIST: DIVA-80 PO; ESCI10 PO; MELA5TAB40 PO; NALT50TA PO; NALT50TA6 PO; OLAN10TA26 PO; OLAN5TAB94 PO; OMEG-108 PO
[2022-03-14 12:19] VITALS: BP 145/98
[2022-03-14] MEDS ORDERED: DIVA-80 PO (13:48)
[2022-03-14] MEDS ORDERED: OLAN5TAB94 PO (13:48)
[2022-03-15] MEDS ORDERED: DIVA-80 PO (10:02)
[2022-03-15] MEDS ORDERED: OLAN10TA74 PO (10:02)
== END 2022-03-14 14:26 | disposition home or self-care (01) ==
LOC: EMS 11:47
DX: F20.9 Schizophrenia, unspecified (principal); F32.9 Major depressive disorder, single episode, unspecified; Z86.69 Personal history of other diseases of the nervous system and sense organs
CPT/HCPCS: 99284; Z7502

== ENCOUNTER 2022-03-15 08:37 | Emergency (ER) | payer OTHER ==
[~2022-03-15] VITALS: Ht 175.3 cm; Wt 93.2 kg
[~2022-03-15 08:37] MED LIST changes: -ESCI10 PO; -MELA5TAB40 PO; -NALT50TA PO; -NALT50TA6 PO; -OLAN10TA26 PO; -OMEG-108 PO
[2022-03-15 08:40] VITALS: BP 134/73
[2022-03-15] MEDS ORDERED: PHENOBARB/HYOSCY/ATROPINE/SCOP 5 ML UDCUP ELIXIR PO ONE (09:15)
[2022-03-15] MEDS ORDERED: DIVALPROEX SODIUM 500 MG ER TABLET PO ONE (09:15)
[2022-03-15] MEDS ORDERED: OLANZapine 5 MG TABLET PO ONE (09:15)
[2022-03-15] MEDS ORDERED: DIVA-80 PO (10:02)
[2022-03-15] MEDS ORDERED: OLAN10TA74 PO (10:02)
== END 2022-03-15 10:26 | disposition home or self-care (01) ==
LOC: EMS 08:37
DX: F20.9 Schizophrenia, unspecified (principal); F32.A Depression, unspecified; Z86.69 Personal history of other diseases of the nervous system and sense organs
CPT/HCPCS: 99284; Z7502; Z7610

== ENCOUNTER 2022-03-25 22:51 | Emergency (ER) | payer OTHER ==
[~2022-03-25] VITALS: Ht 180.3 cm; Wt 93.2 kg
[~2022-03-25 22:51] MED LIST changes: +OLAN10TA74 PO
[2022-03-25 23:18] VITALS: BP 138/72
[2022-03-26] MEDS ORDERED: DiphenhydrAMINE HCL 25 MG CAPSULE PO ONE ×2 (00:45→01:45)
[2022-03-26 00:50] LABS: BASOPHILS % (AUTO) 0.3 % (0.0-2.0); EOSINOPHILS % (AUTO) 4.3 % (1.0-6.0); HEMATOCRIT 38.4 % (41-53); HEMOGLOBIN 13.3 g/dL (13.5-17.5); LYMPHOCYTES # (AUTO) 2.6 K/uL (1.0-4.8); LYMPHOCYTES % (AUTO) 35.3 % (22.0-44.0); MEAN CORPUSCULAR HEMOGLOBIN 29.6 pg (26.0-34.0); MEAN CORPUSCULAR HGB CONC 34.5 G/dL (31.0-37.0); MEAN CORPUSCULAR VOLUME 86 fL (80-100); MONOCYTES # (AUTO) 0.8 K/uL (0.1-1.0); MONOCYTES % (AUTO) 10.6 % (2.0-9.0); NEUTROPHILS # (AUTO) 3.6 K/uL (1.8-7.7); NEUTROPHILS % (AUTO) 49.5 % (40.0-70.0); PLATELET COUNT (AUTO) 265 K/uL (150-450); RED BLOOD CELL COUNT(AUTO) 4.48 MIL/uL (4.50-5.90)
[2022-03-26 00:57] LABS: ANION GAP 9 mmol/L (8-16); CALCIUM, TOTAL 9.2 mg/dL (8.8-10.5); CARBON DIOXIDE 28 mmol/L (22-29); CHLORIDE 105 mmol/L (98-107); CREATININE 0.89 mg/dL (0.60-1.30); GLUCOSE,RANDOM 102 mg/dL (70-110); POTASSIUM 3.9 mmol/L (3.5-5.1); SODIUM SERUM 142 mmol/L (136-145); UREA NITROGEN, BLOOD 17 mg/dL (7-18)
[2022-03-26 01:01] LABS: GLOMERULAR FILTR. RATE CALC > 60 mL/min (>60)
[2022-03-26 01:04] LABS: ALANINE AMINOTRANSFERASE 17 U/L (12-78); ALBUMIN 3.7 g/dL (3.4-5.0); ALKALINE PHOSPHATASE 52 U/L (46-116); ASPARTATE AMINOTRANSFERASE 11 U/L (15-37); BILIRUBIN,TOTAL 0.1 mg/dL (0.1-1.0); TOTAL PROTEIN, SERUM 6.7 g/dL (6.4-8.2)
== END 2022-03-26 01:00 | disposition home or self-care (01) ==
LOC: EMS 22:54
DX: F20.9 Schizophrenia, unspecified (principal); F32.9 Major depressive disorder, single episode, unspecified; Z79.899 Other long term (current) drug therapy
CPT/HCPCS: 80053; 85025; 99284

== ENCOUNTER 2022-05-18 13:51 | Emergency (ER) | payer OTHER ==
[~2022-05-18] VITALS: Ht 180.3 cm; Wt 91.0 kg
[2022-05-18] MEDS ORDERED: OLAN20TA35 PO (14:14)
[2022-05-18] MEDS ORDERED: ESCI10 PO (14:14)
[2022-05-18 16:15] LABS: ANION GAP 7 mmol/L (8-16); CALCIUM, TOTAL 9.2 mg/dL (8.8-10.5); CARBON DIOXIDE 26 mmol/L (22-29); CHLORIDE 103 mmol/L (98-107); CREATININE 1.04 mg/dL (0.60-1.30); GLOMERULAR FILTR. RATE CALC > 60 mL/min (>60); GLUCOSE,RANDOM 119 mg/dL (70-110); POTASSIUM 3.8 mmol/L (3.5-5.1); SODIUM SERUM 136 mmol/L (136-145); UREA NITROGEN, BLOOD 19 mg/dL (7-18)
[2022-05-18 16:26] LABS: BASOPHILS % (AUTO) 0.1 % (0.0-2.0); EOSINOPHILS % (AUTO) 0.2 % (1.0-6.0); HEMATOCRIT 38.6 % (41-53); HEMOGLOBIN 12.9 g/dL (13.5-17.5); LYMPHOCYTES # (AUTO) 1.8 K/uL (1.0-4.8); LYMPHOCYTES % (AUTO) 13.7 % (22.0-44.0); MEAN CORPUSCULAR HEMOGLOBIN 29.3 pg (26.0-34.0); MEAN CORPUSCULAR HGB CONC 33.4 G/dL (31.0-37.0); MEAN CORPUSCULAR VOLUME 88 fL (80-100); MONOCYTES # (AUTO) 0.9 K/uL (0.1-1.0); MONOCYTES % (AUTO) 7.1 % (2.0-9.0); NEUTROPHILS # (AUTO) 10.1 K/uL (1.8-7.7); NEUTROPHILS % (AUTO) 78.9 % (40.0-70.0); PLATELET COUNT (AUTO) 274 K/uL (150-450); RED BLOOD CELL COUNT(AUTO) 4.39 MIL/uL (4.50-5.90); RED CELL DISTRIBUTION WIDTH 13.7 % (11.5-14.5)
[2022-05-18 16:28] LABS: ALANINE AMINOTRANSFERASE 20 U/L (12-78); ALBUMIN 4.2 g/dL (3.4-5.0); ALKALINE PHOSPHATASE 40 U/L (46-116); ASPARTATE AMINOTRANSFERASE 12 U/L (15-37); BILIRUBIN,TOTAL 0.4 mg/dL (0.1-1.0); TOTAL PROTEIN, SERUM 7.1 g/dL (6.4-8.2)
[2022-05-18 16:38] LABS: VALPROIC ACID 59 mcg/mL (50-100)
[2022-05-18 16:39] LABS: ACETAMINOPHEN < 2 mcg/mL (10-30)
[2022-05-18 16:45] VITALS: BP 117/76
== END 2022-05-18 18:36 | disposition home or self-care (01) ==
LOC: EMS 14:05
DX: F20.9 Schizophrenia, unspecified (principal); F32.9 Major depressive disorder, single episode, unspecified; R11.2 Nausea with vomiting, unspecified; F10.20 Alcohol dependence, uncomplicated
CPT/HCPCS: 99284; 80053; 80164; 85025; 36415; G0480; G0481

== ENCOUNTER 2025-03-12 18:25 | Inpatient (IN) | payer MEDICAID, OTHER ==
[~2025-03-12] VITALS: Ht 172.7 cm; Wt 91.2 kg
[~2025-03-12 18:25] MED LIST changes: +DIVA-153 PO; -DIVA-80 PO; +ESCI10 PO; -OLAN10TA74 PO; +OLAN20TA82 PO; -OLAN5TAB94 PO
[2025-03-12 21:10] LABS: PLATELET COUNT (AUTO) 378 K/uL (150-450); RED BLOOD CELL COUNT(AUTO) 4.89 MIL/uL (4.50-5.90); RED CELL DISTRIBUTION WIDTH 13.4 % (11.5-14.5); WHITE BLOOD COUNT (AUTO) 9.6 K/uL (4.5-11.0)
[2025-03-12 21:26] LABS: CALCIUM, TOTAL 9.2 mg/dL (8.8-10.5); CREATININE 0.93 mg/dL (0.60-1.30); GLOMERULAR FILTR. RATE CALC > 60 mL/min (>60); GLUCOSE,RANDOM 98 mg/dL (70-110); SODIUM SERUM 145 mmol/L (136-145); UREA NITROGEN, BLOOD 16 mg/dL (7-18)
[2025-03-12 21:30] LABS: COVID AG,FIA SOURCE NASAL SWAB
[2025-03-12 21:53] LABS: SARS-COV2 (COVID) ANTIGEN,FIA Negative (Negative)
[2025-03-13] MEDS: LORazepam 2 MG/ML VIAL IM ONE (02:30)
[2025-03-13 18:45] VITALS: O2SAT 98
[2025-03-13 21:00] VITALS: BP 129/80; PULSE 85; RESP 18; TEMP 97.5; O2SAT 99
[2025-03-14 07:42] LABS: BAND NEUTROPHILS % (MANUAL) 0 % (0-5)
[2025-03-14] MEDS ORDERED: BACITRACIN 28 GM OINTMENT TP PRN (07:45)
[2025-03-14] MEDS ORDERED: OMEPRAZOLE 20 MG CAPSULE PO PRN (07:45)
[2025-03-14] MEDS ORDERED: ONDANSETRON 4 MG TABLET PO PRN (07:45)
[2025-03-14] MEDS ORDERED: BENZOCAINE/MENTHOL [CEPACOL] LOZENGE PO PRN (07:45)
[2025-03-14] MEDS ORDERED: MAG HYDROX/ALUMINUM HYD/SIMETH ES 30 ML SUSPENSION UDCUP PO PRN (07:45)
[2025-03-14] MEDS ORDERED: LOPERAMIDE HCL 2 MG CAPSULE PO PRN (07:45)
[2025-03-14] MEDS ORDERED: IBUPROFEN 600 MG TABLET PO PRN (07:45)
[2025-03-14] MEDS ORDERED: DOCUSATE SODIUM 100 MG CAPSULE PO PRN (07:45)
[2025-03-14] MEDS ORDERED: PETROLATUM,WHITE 28 GM JELLY TP PRN (07:45)
[2025-03-14] MEDS ORDERED: ALBUTEROL SULFATE HFA 90 MCG/PUFF 8 GM INHALER IH PRN (07:45)
[2025-03-14] MEDS ORDERED: MAGNESIUM HYDROXIDE SUSPENSION 30 ML UDCUP PO PRN (07:45)
[2025-03-14 08:00] LABS: PLATELET COUNT (AUTO) 356 K/uL (150-450); RED BLOOD CELL COUNT(AUTO) 4.83 MIL/uL (4.50-5.90); RED CELL DISTRIBUTION WIDTH 13.7 % (11.5-14.5); WHITE BLOOD COUNT (AUTO) 7.5 K/uL (4.5-11.0)
[2025-03-14 08:25] LABS: CALCIUM, TOTAL 9.1 mg/dL (8.8-10.5); CREATININE 1.03 mg/dL (0.60-1.30); GLOMERULAR FILTR. RATE CALC > 60 mL/min (>60); GLUCOSE,RANDOM 108 mg/dL (70-110); SODIUM SERUM 141 mmol/L (136-145); UREA NITROGEN, BLOOD 18 mg/dL (7-18)
[2025-03-14 08:33] LABS: ASPARTATE AMINOTRANSFERASE 14 U/L (15-37); CHOL/HDL RATIO 3.9 (4.2-7.3); LDL CHOL (CALC.) 85 mg/dL (0-130); TOTAL PROTEIN, SERUM 6.8 g/dL (6.4-8.2)
[2025-03-14 09:15] LABS: LYMPHOCYTES % (MANUAL) 42 % (22-44); MONOCYTES % (MANUAL) 2 % (2-9); SEGMENTED NEUTROPHILS % 56 % (40-70)
[2025-03-14 09:16] LABS: RBC MORPHOLOGY COMMENT NORMAL RBC MORPH
[2025-03-14 09:30] VITALS: BP 139/90; PULSE 83; RESP 17; TEMP 97.8; O2SAT 99
[2025-03-14] MEDS: DIVALPROEX SODIUM 500 MG ER TABLET PO SCH (13:00)
[2025-03-14] MEDS ORDERED: ESCI-8 PO (13:10)
[2025-03-14] MEDS: ESCITALOPRAM OXALATE 10 MG TABLET PO SCH (14:50)
[2025-03-14 22:03] VITALS: BP 137/91; PULSE 84; RESP 18; TEMP 96.7; O2SAT 100
[2025-03-15 08:00] VITALS: BP 134/91; PULSE 99; RESP 18; TEMP 97; O2SAT 100
[2025-03-15 21:19] VITALS: BP 123/85; PULSE 95; RESP 20; TEMP 98; O2SAT 98
[2025-03-16 18:30] VITALS: BP 131/85; PULSE 91; RESP 18; TEMP 98.1; O2SAT 98
[2025-03-16 21:52] VITALS: BP 149/87; PULSE 110; RESP 18; TEMP 97; O2SAT 98
[2025-03-17 08:50] VITALS: BP 130/88; PULSE 113; RESP 17; TEMP 98.6; O2SAT 98
[2025-03-17] MEDS: ZOLPIDEM TARTRATE 10 MG TABLET PO PRN (21:45)
[2025-03-17 23:19] VITALS: BP 119/96; PULSE 107; RESP 18; TEMP 98.3; O2SAT 98
[2025-03-18 13:52] VITALS: BP 116/77; PULSE 111; RESP 18; TEMP 97.8; O2SAT 98
[2025-03-18 18:10] LABS: APPEARANCE,URINE CLEAR (CLEAR); GLUCOSE, URINE (UA) NEGATIVE (NEGATIVE); LEUKOCYTE ESTERASE ,URINE NEGATIVE (NEGATIVE); NITRATE,URINE NEGATIVE (NEGATIVE); OCCULT BLOOD,URINE NEGATIVE (NEGATIVE); PH,URINE DRUG SCREEN 7.0 (5.0-8.0); SPECIFIC GRAVITIY, URINE 1.019 (1.003-1.030)
[2025-03-18 18:13] LABS: ALCOHOL, URINE DRUG SCREEN NEGATIVE (NEGATIVE); AMPHET/METH SCREEN,URINE NEGATIVE (NEGATIVE); BARBITURATE SCREEN, URINE NEGATIVE (NEGATIVE); CANNABINOID SCREEN,URINE NEGATIVE (NEGATIVE); COCAINE SCREEN,URINE NEGATIVE (NEGATIVE); METHADONE SCREEN, URINE NEGATIVE (NEGATIVE)
[2025-03-18 21:44] VITALS: BP 126/88; PULSE 100; RESP 18; TEMP 97.5; O2SAT 100
[2025-03-19 09:06] VITALS: BP 125/89; PULSE 104; RESP 18; TEMP 97.5; O2SAT 99
[2025-03-19 16:53] LABS: APPEARANCE,URINE CLEAR (CLEAR); GLUCOSE, URINE (UA) NEGATIVE (NEGATIVE); LEUKOCYTE ESTERASE ,URINE NEGATIVE (NEGATIVE); NITRATE,URINE NEGATIVE (NEGATIVE); OCCULT BLOOD,URINE NEGATIVE (NEGATIVE); PH,URINE DRUG SCREEN 7.0 (5.0-8.0); SPECIFIC GRAVITIY, URINE 1.012 (1.003-1.030)
[2025-03-19 17:00] LABS: ALCOHOL, URINE DRUG SCREEN NEGATIVE (NEGATIVE); AMPHET/METH SCREEN,URINE NEGATIVE (NEGATIVE); BARBITURATE SCREEN, URINE NEGATIVE (NEGATIVE); CANNABINOID SCREEN,URINE NEGATIVE (NEGATIVE); COCAINE SCREEN,URINE NEGATIVE (NEGATIVE); METHADONE SCREEN, URINE NEGATIVE (NEGATIVE)
[2025-03-19 21:35] VITALS: BP 138/99; PULSE 98; RESP 18; TEMP 97; O2SAT 99
[2025-03-20 09:19] VITALS: BP 131/91; PULSE 112; RESP 18; TEMP 98.1; O2SAT 97
[2025-03-20 22:39] VITALS: BP 131/106; PULSE 113; RESP 18; TEMP 97.2; O2SAT 98
[2025-03-21 08:00] VITALS: BP 124/72; PULSE 78; RESP 18; TEMP 97.5; O2SAT 98
[2025-03-21 20:49] VITALS: BP 132/88; PULSE 117; RESP 18; TEMP 97.6; O2SAT 98
[2025-03-22 09:06] VITALS: BP 119/80; PULSE 72; RESP 18; TEMP 97; O2SAT 98
[2025-03-22 21:13] VITALS: BP 154/107; PULSE 85; RESP 18; TEMP 97.6; O2SAT 99
[2025-03-23 16:08] VITALS: BP 130/72; PULSE 85; RESP 17; TEMP 98.7; O2SAT 98
[2025-03-23 20:41] VITALS: BP 136/92; PULSE 100; RESP 18; TEMP 98.6; O2SAT 98
[2025-03-24 09:00] VITALS: BP 127/89; PULSE 82; RESP 19; TEMP 97; O2SAT 98
[2025-03-24 21:05] VITALS: BP 111/81; PULSE 91; RESP 18; TEMP 97.7
[2025-03-25 10:58] VITALS: BP 115/84; PULSE 81; RESP 16; TEMP 97.3; O2SAT 98
[2025-03-25 20:09] VITALS: BP 120/82; PULSE 87; RESP 16; TEMP 97.6; O2SAT 97
[2025-03-26 14:33] VITALS: BP 118/88; PULSE 96; RESP 18; TEMP 98; O2SAT 97
[2025-03-26 21:27] VITALS: BP 141/82; PULSE 83; RESP 16; TEMP 97.3; O2SAT 94
[2025-03-27 21:19] VITALS: BP 140/98; PULSE 92; RESP 18; TEMP 98.3; O2SAT 18
[2025-03-28 08:56] VITALS: BP 123/83; PULSE 88; RESP 17; TEMP 97.2; O2SAT 99
[2025-03-28 20:49] VITALS: BP 137/91; PULSE 86; RESP 18; TEMP 97.5; O2SAT 98
[2025-03-29 13:29] VITALS: BP 120/77; PULSE 75; RESP 17; TEMP 97.5; O2SAT 98
[2025-03-29 21:21] VITALS: BP 128/84; PULSE 89; RESP 18; TEMP 98.4; O2SAT 98
[2025-03-30 06:47] LABS: PLATELET COUNT (AUTO) 269 K/uL (150-450); RED BLOOD CELL COUNT(AUTO) 4.34 MIL/uL (4.50-5.90); RED CELL DISTRIBUTION WIDTH 13.7 % (11.5-14.5); WHITE BLOOD COUNT (AUTO) 7.8 K/uL (4.5-11.0)
[2025-03-30 06:57] LABS: CALCIUM, TOTAL 8.2 mg/dL (8.8-10.5); CREATININE 0.79 mg/dL (0.60-1.30); GLOMERULAR FILTR. RATE CALC > 60 mL/min (>60); GLUCOSE,RANDOM 79 mg/dL (70-110); SODIUM SERUM 143 mmol/L (136-145); UREA NITROGEN, BLOOD 18 mg/dL (7-18)
[2025-03-30 10:27] VITALS: BP 151/81; PULSE 100; RESP 17; TEMP 97; O2SAT 98
[2025-03-30 21:36] VITALS: BP 131/72; PULSE 86; RESP 18; TEMP 97.9
[2025-03-31 14:02] VITALS: BP 127/79; PULSE 86; RESP 17; TEMP 97.6
[2025-03-31 20:30] VITALS: BP 149/79; PULSE 83; RESP 18; TEMP 98.5; O2SAT 98
[2025-04-01 11:08] VITALS: RESP 17
[2025-04-01 21:28] VITALS: BP 125/82; PULSE 96; RESP 18; TEMP 97.9; O2SAT 97
[2025-04-02 09:41] VITALS: BP 109/77; PULSE 103; RESP 18
[2025-04-02 21:50] VITALS: BP 125/90; PULSE 103; RESP 18; TEMP 98.3; O2SAT 98
[2025-04-03 09:09] VITALS: RESP 18
[2025-04-03] MEDS: ACETAMINOPHEN 325 MG TABLET PO PRN (11:35)
[2025-04-03 20:27] VITALS: BP 138/89; PULSE 98; RESP 18; TEMP 98.1; O2SAT 98
[2025-04-04 09:09] VITALS: BP 134/80; PULSE 98; RESP 17; TEMP 97.9; O2SAT 98
[2025-04-04 20:39] VITALS: BP 120/81; PULSE 102; RESP 16; TEMP 98; O2SAT 97
[2025-04-05 09:59] VITALS: BP 123/87; PULSE 89; RESP 18; TEMP 97.6; O2SAT 98
[2025-04-05 20:14] VITALS: BP 116/86; PULSE 105; RESP 18; TEMP 98; O2SAT 98
[2025-04-06 10:54] VITALS: BP 126/96; PULSE 101; RESP 19; TEMP 96.8; O2SAT 98
[2025-04-06 21:57] VITALS: RESP 18
[2025-04-07 08:30] VITALS: RESP 18
[2025-04-07 08:45] VITALS: RESP 18
[2025-04-07 21:52] VITALS: BP 120/79; PULSE 77; RESP 18; TEMP 98
[2025-04-08 10:39] VITALS: BP 128/71; PULSE 85; RESP 18; TEMP 97.7; O2SAT 98
[2025-04-08] MEDS ORDERED: DIVA-153 PO ×2 (11:06→19:46)
[2025-04-08] MEDS ORDERED: OLAN10TA74 PO (19:46)
[2025-04-08] MEDS ORDERED: ESCI-8 PO (19:46)
== END 2025-04-08 12:49 | disposition home or self-care (01) | DRG 750 ==
LOC: EMS 18:25 → 3EI 03-13 21:08
PROVIDERS: ADMIT Psychiatry & Neurology Psychiatry; ATTEND Psychiatry & Neurology Psychiatry
PROC: GZHZZZZ Group Psychotherapy (ICD-10-PCS; principal; 2025-03-14)
PROC: GZ52ZZZ Individual Psychotherapy, Cognitive (ICD-10-PCS; 2025-03-20)
DX: F25.0 Schizoaffective disorder, bipolar type (principal); G40.909 Epilepsy, unspecified, not intractable, without status epilepticus; R45.851 Suicidal ideations; F41.9 Anxiety disorder, unspecified; Z20.822 Contact with and (suspected) exposure to COVID-19; G47.00 Insomnia, unspecified; K59.00 Constipation, unspecified; F10.90 Alcohol use, unspecified, uncomplicated; Y90.0 Blood alcohol level of less than 20 mg/100 ml; F12.90 Cannabis use, unspecified, uncomplicated; Z91.148 Patient's other noncompliance with medication regimen for other reason; Z79.899 Other long term (current) drug therapy
CPT/HCPCS: 80048; 80053; 80061; 80307; 81003; 83036; 84436; 84443; 85007; 85025; 85027; 99285; G0480; J1200; J1630; J2060